=== PATIENT | female | born 1935 | race Caucasian/White ===

== ENCOUNTER 2018-07-17 09:29 | Inpatient (IN) | payer MEDICARE, OTHER ==
[~2018-07-17] VITALS: Ht 152.4 cm; Wt 72.0 kg
[~2018-07-17 09:29] MED LIST: AMIT10TA6 PO; ASPI-231 PO; ATOR10TA PO; CHOL200031 PO; FENO1TAB42 PO; LISI2.5T47 PO; METF-370 PO; METO25TA62 PO; MULT-228 PO; NAPR375T27 PO; OMEG100078 PO; SITA50TA PO; TRAM50TA2 PO
[2018-07-17] MEDS ORDERED: ONDANSETRON HCL 4 MG/2 ML VIAL IV ONE ×2 (10:15→12:45)
[2018-07-17] MEDS ORDERED: ALBUTEROL SULF 2.5 MG/0.5ML(0.5%) NEB SOLN NEB ONE (10:15)
[2018-07-17] MEDS ORDERED: methylPREDNISolone SOD SUCC 125 MG/2 ML VL IV ONE (10:15)
[2018-07-17] MEDS ORDERED: IPRATROPIUM BROM 0.5 MG/2.5ML INH SOL NEB ONE (10:15)
[2018-07-17 10:25] LABS: Basophils # (auto) 0 uL; Basophils % (auto) 0.2 % (0.0-2.0); Eosinophils # (auto) 0 uL; Lymphocytes # (auto) 1.3 uL
[2018-07-17 10:28] LABS: Hematocrit 29.6 % (36.0-46.0); Hemoglobin 10.1 g/dL (12.2-16.2); Lymphocytes % (auto) 6.1 % (10.0-50.0); Mean Corpuscular Volume 91.3 fL (80.0-100.0); Monocytes # (auto) 1.8 uL; Monocytes % (auto) 8.5 % (0.0-12.0); Neutrophils # (auto) 17.9 uL; Neutrophils % (auto) 85.2 % (37.0-80.0); Platelet Count (auto) 638 10^3/uL (140-450); Red Blood Cells 3.24 10^6/uL (4.0-5.20); Red Cell Distribution Width 13.5 % (11.8-14.3)
[2018-07-17 10:39] LABS: INR 1.16 (0.9-1.15); Partial Thromboplastin Time 26.7 sec (23.78-33.04); Prothrombin Time 12.3 sec (9.27-12.13)
[2018-07-17] MEDS ORDERED: cefTRIAXone 1GM/10ml IVPUSH 10 ML IV ONE (10:45)
[2018-07-17 10:58] LABS: Albumin 2.5 g/dL (3.4-5.0); BUN/Creatinine Ratio 29.4; Calcium 7.8 mg/dL (8.5-10.1); Potassium 3.5 mmol/L (3.5-5.1); Total Protein 6.4 g/dL (6.4-8.2)
[2018-07-17] MEDS ORDERED: SODIUM CHLORIDE 0.9% 2,000 ML IV ONE (11:00)
[2018-07-17] MEDS ORDERED: PROMETHAZINE HCL 25 MG/ML 1ML IV ONE (12:00)
[2018-07-17 12:13] LABS: Urine Amorphous Crystal FEW /hpf (None Seen); Urine Bacteria MANY /hpf (None Seen); Urine Blood 1+ /uL (Negative); Urine Specific Gravity 1.011 (1.001-1.035); Urine WBC 67 /hpf (0 - 5); Urine WBC Clumps PRESENT /hpf (None Seen)
[2018-07-17] MEDS ORDERED: PANTOPRAZOLE 40 MG/10 ML VIAL IV ONE ×2 (12:45→14:00)
[2018-07-17] MEDS ORDERED: ONDANSETRON HCL 4 MG/2 ML VIAL ONE (12:45)
[2018-07-17] MEDS ORDERED: DEXTROSE (50%) 50ML SYRG IV PRN (13:45)
[2018-07-17] MEDS ORDERED: FAMOTIDINE (10MG/ML) 2ML VL IV ONE (14:00)
[2018-07-17] MEDS ORDERED: METOPROLOL SUCCINATE XL 50 MG TAB PO ONE (14:00)
[2018-07-17] MEDS ORDERED: PIOGLITAZONE HYDROCHLORIDE 30 MG TAB PO ONE (14:00)
[2018-07-17] MEDS ORDERED: ACETAMINOPHEN 325 MG TAB PO PRN (14:15)
[2018-07-17] MEDS ORDERED: MORPHINE SULF INJ 2 MG/ML SYRINGE 1ML IV PRN (14:15)
[2018-07-17] MEDS ORDERED: TEMAZEPAM 15 MG CAP PO PRN (14:15)
[2018-07-17] MEDS ORDERED: NITROGLYCERIN 0.4 MG SL TAB SL PRN (14:15)
[2018-07-17] MEDS: FISH OIL 1000 MG PO SCH ×2 (14:33→21:58)
[2018-07-17] MEDS: SODIUM CHLORIDE 0.9% 1,000 ML IV SCH ×2 (14:33→22:21)
[2018-07-17] MEDS: ACCU-CHEK COMFORT CURVE STRIP VI SCH ×2 (17:11→22:04)
[2018-07-17] MEDS: InsuLIN REG 1unit/0.01ml Soln (100units/ml) SC SCH ×2 (17:12→22:08)
[2018-07-17] MEDS: ONDANSETRON HCL 4 MG/2 ML VIAL IV PRN (17:24)
[2018-07-17] MEDS: MORPHINE SULF INJ 2 MG/ML SYRINGE 1ML IV PRN (17:24)
[2018-07-17] MEDS: Glucerna Carbsteady SHAKE Vanilla 8oz PO SCH (18:00)
[2018-07-17 19:00] LABS: Basophils # (auto) 0 uL; Basophils % (auto) 0.1 % (0.0-2.0); Eosinophils # (auto) 0 uL; Lymphocytes # (auto) 1.2 uL; Monocytes # (auto) 1.3 uL
[2018-07-17 19:04] LABS: Hemoglobin 9.1 g/dL (12.2-16.2); Lymphocytes % (auto) 6.1 % (10.0-50.0); Mean Corpuscular Hemoglobin 32.5 pg (28.0-32.0); Mean Corpuscular Hgb Conc. 34.9 g/dL (32.0-36.0); Mean Corpuscular Volume 93.2 fL (80.0-100.0); Monocytes % (auto) 6.9 % (0.0-12.0); Neutrophils # (auto) 16.9 uL; Neutrophils % (auto) 86.9 % (37.0-80.0); Platelet Count (auto) 515 10^3/uL (140-450); Red Blood Cells 2.79 10^6/uL (4.0-5.20); Red Cell Distribution Width 14.4 % (11.8-14.3); White Blood Cell 19.5 10^3/uL (4.4-10.8)
[2018-07-17] MEDS: HYDROcodone-ACET 5/325MG TAB PO PRN (19:28)
[2018-07-17] MEDS ORDERED: AMITRIPTYLINE HCL 25 MG TAB ONE (21:58)
[2018-07-17] MEDS: AMITRIPTYLINE HCL 10 MG TAB PO SCH (22:00)
[2018-07-17] MEDS: PANTOPRAZOLE 40 MG/10 ML VIAL IV SCH (22:01)
[2018-07-17] MEDS: ATORVASTATIN 20 MG TAB PO SCH (22:01)
[2018-07-17 22:41] LABS: Hemoglobin 8.2 g/dL (12.2-16.2)
[2018-07-18] MEDS: FISH OIL 1000 MG PO SCH ×3 (06:00→22:00)
[2018-07-18] MEDS: SODIUM CHLORIDE 0.9% 1,000 ML IV SCH ×3 (06:25→23:21)
[2018-07-18] MEDS: ACCU-CHEK COMFORT CURVE STRIP VI SCH ×4 (07:00→22:07)
[2018-07-18] MEDS: InsuLIN REG 1unit/0.01ml Soln (100units/ml) SC SCH ×4 (07:00→22:00)
[2018-07-18 07:42] LABS: Basophils # (auto) 0 uL; Eosinophils # (auto) 0 uL; Eosinophils % (auto) 0.1 % (0.0-7.0); Hemoglobin 8.4 g/dL (12.2-16.2); Red Blood Cells 2.68 10^6/uL (4.0-5.20); Red Cell Distribution Width 14.2 % (11.8-14.3)
[2018-07-18] MEDS: ONDANSETRON HCL 4 MG/2 ML VIAL IV PRN ×2 (07:42→14:30)
[2018-07-18 07:45] LABS: Basophils % (auto) 0.1 % (0.0-2.0); Hematocrit 24.6 % (36.0-46.0); Lymphocytes % (auto) 12.5 % (10.0-50.0); Mean Corpuscular Hemoglobin 31.5 pg (28.0-32.0); Mean Corpuscular Hgb Conc. 34.3 g/dL (32.0-36.0); Mean Corpuscular Volume 91.7 fL (80.0-100.0); Monocytes # (auto) 1.7 uL; Monocytes % (auto) 10.4 % (0.0-12.0); Neutrophils # (auto) 12.3 uL; Neutrophils % (auto) 76.9 % (37.0-80.0); Nucleated Red Blood Cells % 0.1 %; Platelet Count (auto) 510 10^3/uL (140-450); White Blood Cell 16.1 10^3/uL (4.4-10.8)
[2018-07-18 08:01] LABS: Calcium 7.5 mg/dL (8.5-10.1); Potassium 3.6 mmol/L (3.5-5.1)
[2018-07-18 08:08] LABS: BUN/Creatinine Ratio 30.4; Bilirubin, Total 0.6 mg/dL (0.2-1.0); Total Protein 5.5 g/dL (6.4-8.2)
[2018-07-18] MEDS: Glucerna Carbsteady SHAKE Vanilla 8oz PO SCH ×3 (09:33→18:08)
[2018-07-18] MEDS: CHOLECALCIFEROL (VITD3) 1,000 UNIT TAB PO SCH (09:58)
[2018-07-18] MEDS: PIOGLITAZONE HYDROCHLORIDE 30 MG TAB PO SCH (09:59)
[2018-07-18] MEDS: LISINOPRIL 20 MG TAB PO SCH (09:59)
[2018-07-18] MEDS: JANUVIA 50 MG PO SCH (10:00)
[2018-07-18] MEDS ORDERED: FAMOTIDINE (10MG/ML) 2ML VL IV SCH (10:00)
[2018-07-18] MEDS: CRANBERRY TAB PO SCH (10:00)
[2018-07-18] MEDS ORDERED: PANTOPRAZOLE 40 MG/10 ML VIAL IV SCH (10:00)
[2018-07-18] MEDS: FENOFIBRATE 160 MG PO SCH (10:00)
[2018-07-18] MEDS: VICTOZA 18 MG/3 ML SC SCH (10:00)
[2018-07-18] MEDS: PANTOPRAZOLE 40 MG/10 ML VIAL IV SCH (10:07)
[2018-07-18] MEDS: cefTRIAXone 1GM/10ml IVPUSH 10 ML IV SCH (10:07)
[2018-07-18] MEDS: METOPROLOL SUCCINATE XL 50 MG TAB PO SCH (10:09)
[2018-07-18] MEDS: ASCORBIC ACID 500 MG TAB PO SCH (10:09)
[2018-07-18] MEDS: MULTIPLE VITAMIN TAB PO SCH (10:10)
[2018-07-18] MEDS ORDERED: MIDAZOLAM HCL 1MG/1ML-2 ML VIAL ONE (12:14)
[2018-07-18] MEDS ORDERED: fentaNYL CITRATE 100 MCG/2 ML VL ONE (12:14)
[2018-07-18] MEDS ORDERED: PROPOFOL 10 MG/ML 20 ML IV ONE (12:14)
[2018-07-18] MEDS ORDERED: ePHEDrine SULFATE 50 MG/ML AMP IV PRN (12:45)
[2018-07-18] MEDS ORDERED: ONDANSETRON HCL 4 MG/2 ML VIAL IV ONE (12:45)
[2018-07-18] MEDS ORDERED: hydrALAZINE HCL 20 MG/ML VL IV PRN (12:45)
[2018-07-18] MEDS ORDERED: fentaNYL CITRATE 100 MCG/2 ML VL IV ONE (13:00)
[2018-07-18] MEDS: MORPHINE SULF INJ 2 MG/ML SYRINGE 1ML IV PRN ×2 (16:33→22:19)
[2018-07-18 17:52] VITALS: BP 165/64
[2018-07-18 22:00] VITALS: BP 126/66
[2018-07-18] MEDS: ATORVASTATIN 20 MG TAB PO SCH (22:18)
[2018-07-18] MEDS: PANTOPRAZOLE 40 MG TAB PO SCH (22:18)
[2018-07-18] MEDS: AMITRIPTYLINE HCL 10 MG TAB PO SCH (22:18)
[2018-07-19] VITALS (12 sets, daily range): BP systolic 128–162; BP diastolic 53–99
[2018-07-19] MEDS: FISH OIL 1000 MG PO SCH ×3 (06:00→22:19)
[2018-07-19 06:30] LABS: Hematocrit 21.6 % (36.0-46.0)
[2018-07-19 06:36] LABS: Hemoglobin 7.5 g/dL (12.2-16.2); Mean Corpuscular Hgb Conc. 34.6 g/dL (32.0-36.0); Mean Corpuscular Volume 92.4 fL (80.0-100.0); Platelet Count (auto) 474 10^3/uL (140-450); Red Blood Cells 2.34 10^6/uL (4.0-5.20); Red Cell Distribution Width 14.2 % (11.8-14.3); White Blood Cell 12.9 10^3/uL (4.4-10.8)
[2018-07-19 06:45] LABS: Band Neutrophils % (manual) 0; Basophils % (manual) 0 (0.0-2.0); Blast Cells 0; Metamyelocytes % 0; Myelocytes % 0; Promyelocytes % 0; Reactive Lymphocytes 0
[2018-07-19] MEDS: ACCU-CHEK COMFORT CURVE STRIP VI SCH ×4 (06:47→22:24)
[2018-07-19] MEDS: InsuLIN REG 1unit/0.01ml Soln (100units/ml) SC SCH ×4 (06:47→22:00)
[2018-07-19 07:02] LABS: BUN/Creatinine Ratio 29.3; Calcium 7.4 mg/dL (8.5-10.1); Potassium 3.7 mmol/L (3.5-5.1)
[2018-07-19 08:20] LABS: Eosinophils % (manual) 1 (0-7); Lymphocytes % (manual) 17 (10.0-50.0); Monocytes % (manual) 7 (0-12)
[2018-07-19 09:00] LABS: Hematocrit 23.1 % (36.0-46.0)
[2018-07-19 09:09] LABS: Hemoglobin 7.9 g/dL (12.2-16.2)
[2018-07-19] MEDS: JANUVIA 50 MG PO SCH (10:00)
[2018-07-19] MEDS: VICTOZA 18 MG/3 ML SC SCH (10:00)
[2018-07-19] MEDS: Glucerna Carbsteady SHAKE Vanilla 8oz PO SCH ×3 (10:01→18:06)
[2018-07-19] MEDS: FENOFIBRATE 160 MG PO SCH (10:01)
[2018-07-19] MEDS: SODIUM CHLORIDE 0.9% 1,000 ML IV SCH ×2 (10:01→16:57)
[2018-07-19] MEDS: CRANBERRY TAB PO SCH (10:02)
[2018-07-19] MEDS: PIOGLITAZONE HYDROCHLORIDE 30 MG TAB PO SCH (10:03)
[2018-07-19] MEDS: LISINOPRIL 20 MG TAB PO SCH (10:03)
[2018-07-19] MEDS: ASCORBIC ACID 500 MG TAB PO SCH (10:04)
[2018-07-19] MEDS: MULTIPLE VITAMIN TAB PO SCH (10:04)
[2018-07-19] MEDS: METOPROLOL SUCCINATE XL 50 MG TAB PO SCH (10:04)
[2018-07-19] MEDS: CHOLECALCIFEROL (VITD3) 1,000 UNIT TAB PO SCH (10:04)
[2018-07-19] MEDS: PANTOPRAZOLE 40 MG TAB PO SCH ×2 (10:04→22:22)
[2018-07-19] MEDS: ONDANSETRON HCL 4 MG/2 ML VIAL IV PRN (11:03)
[2018-07-19] MEDS: cefTRIAXone 1GM/10ml IVPUSH 10 ML IV SCH (16:57)
[2018-07-19] MEDS: ATORVASTATIN 20 MG TAB PO SCH (22:19)
[2018-07-19] MEDS: AMITRIPTYLINE HCL 10 MG TAB PO SCH (22:24)
[2018-07-20] MEDS: SODIUM CHLORIDE 0.9% 1,000 ML IV SCH (00:21)
[2018-07-20 05:00] VITALS: BP 143/69
[2018-07-20] MEDS: FISH OIL 1000 MG PO SCH ×4 (06:00→22:00)
[2018-07-20] MEDS: InsuLIN REG 1unit/0.01ml Soln (100units/ml) SC SCH ×4 (06:32→22:00)
[2018-07-20] MEDS: ACCU-CHEK COMFORT CURVE STRIP VI SCH ×4 (06:33→21:55)
[2018-07-20 07:22] LABS: Hematocrit 31.9 % (36.0-46.0); Hemoglobin 11.2 g/dL (12.2-16.2); Mean Corpuscular Hemoglobin 30.4 pg (28.0-32.0); Mean Corpuscular Volume 86.8 fL (80.0-100.0); Platelet Count (auto) 436 10^3/uL (140-450); Red Blood Cells 3.67 10^6/uL (4.0-5.20); Red Cell Distribution Width 15.8 % (11.8-14.3); White Blood Cell 10.5 10^3/uL (4.4-10.8)
[2018-07-20 07:29] LABS: Basophils % (manual) 0 (0.0-2.0); Blast Cells 0; Myelocytes % 0; Promyelocytes % 0; Reactive Lymphocytes 0
[2018-07-20 07:33] LABS: Calcium 7.9 mg/dL (8.5-10.1); Potassium 3.5 mmol/L (3.5-5.1)
[2018-07-20 08:15] LABS: Band Neutrophils % (manual) 3; Eosinophils % (manual) 2 (0-7); Lymphocytes % (manual) 25 (10.0-50.0); Monocytes % (manual) 3 (0-12)
[2018-07-20 08:16] LABS: Metamyelocytes % 2
[2018-07-20 09:00] VITALS: BP 153/68
[2018-07-20] MEDS: Glucerna Carbsteady SHAKE Vanilla 8oz PO SCH ×3 (09:31→17:18)
[2018-07-20] MEDS: cefTRIAXone 1GM/10ml IVPUSH 10 ML IV SCH (09:31)
[2018-07-20] MEDS: PANTOPRAZOLE 40 MG TAB PO SCH ×2 (09:32→21:54)
[2018-07-20] MEDS: LISINOPRIL 20 MG TAB PO SCH (09:32)
[2018-07-20] MEDS: ASCORBIC ACID 500 MG TAB PO SCH (09:32)
[2018-07-20] MEDS: SODIUM BICARBONATE 650 MG TAB PO SCH ×2 (09:32→21:54)
[2018-07-20] MEDS: CHOLECALCIFEROL (VITD3) 1,000 UNIT TAB PO SCH (09:33)
[2018-07-20] MEDS: METOPROLOL SUCCINATE XL 50 MG TAB PO SCH (09:34)
[2018-07-20] MEDS: MULTIPLE VITAMIN TAB PO SCH (09:34)
[2018-07-20] MEDS: PIOGLITAZONE HYDROCHLORIDE 30 MG TAB PO SCH (09:34)
[2018-07-20] MEDS: FENOFIBRATE 160 MG PO SCH (09:35)
[2018-07-20] MEDS: VICTOZA 18 MG/3 ML SC SCH (09:35)
[2018-07-20] MEDS: CRANBERRY TAB PO SCH (09:35)
[2018-07-20] MEDS: JANUVIA 50 MG PO SCH (09:43)
[2018-07-20 13:28] VITALS: BP 148/72
[2018-07-20 17:13] VITALS: BP 154/80
[2018-07-20 20:00] VITALS: BP 159/82
[2018-07-20 21:51] VITALS: BP 159/82
[2018-07-20] MEDS: AMITRIPTYLINE HCL 10 MG TAB PO SCH (21:54)
[2018-07-20] MEDS: ATORVASTATIN 20 MG TAB PO SCH (21:54)
[2018-07-21 04:38] VITALS: BP 152/68
[2018-07-21] MEDS: FISH OIL 1000 MG PO SCH (06:00)
[2018-07-21] MEDS: InsuLIN REG 1unit/0.01ml Soln (100units/ml) SC SCH ×2 (06:31→12:00)
[2018-07-21] MEDS: ACCU-CHEK COMFORT CURVE STRIP VI SCH ×2 (06:32→11:30)
[2018-07-21 07:48] LABS: Hemoglobin 11.3 g/dL (12.2-16.2)
[2018-07-21 07:50] LABS: Hematocrit 32.7 % (36.0-46.0); Mean Corpuscular Hemoglobin 30.2 pg (28.0-32.0); Mean Corpuscular Hgb Conc. 34.5 g/dL (32.0-36.0); Mean Corpuscular Volume 87.6 fL (80.0-100.0); Platelet Count (auto) 481 10^3/uL (140-450); Red Blood Cells 3.73 10^6/uL (4.0-5.20); Red Cell Distribution Width 15.7 % (11.8-14.3); White Blood Cell 9.6 10^3/uL (4.4-10.8)
[2018-07-21 07:54] LABS: Basophils % (manual) 0 (0.0-2.0); Blast Cells 0; Metamyelocytes % 0; Myelocytes % 0; Promyelocytes % 0; Reactive Lymphocytes 0
[2018-07-21 08:00] VITALS: BP 153/68
[2018-07-21] MEDS: Glucerna Carbsteady SHAKE Vanilla 8oz PO SCH ×2 (08:00→12:00)
[2018-07-21 08:03] LABS: Calcium 7.9 mg/dL (8.5-10.1); Potassium 3.8 mmol/L (3.5-5.1)
[2018-07-21 08:51] LABS: Band Neutrophils % (manual) 7; Eosinophils % (manual) 1 (0-7); Lymphocytes % (manual) 16 (10.0-50.0); Monocytes % (manual) 8 (0-12)
[2018-07-21 09:00] VITALS: BP 149/70
[2018-07-21] MEDS: VICTOZA 18 MG/3 ML SC SCH (10:00)
[2018-07-21] MEDS: LISINOPRIL 20 MG TAB PO SCH (10:00)
[2018-07-21] MEDS: JANUVIA 50 MG PO SCH (10:00)
[2018-07-21] MEDS: METOPROLOL SUCCINATE XL 50 MG TAB PO SCH (10:01)
[2018-07-21] MEDS: PIOGLITAZONE HYDROCHLORIDE 30 MG TAB PO SCH (10:02)
[2018-07-21] MEDS: MULTIPLE VITAMIN TAB PO SCH (10:02)
[2018-07-21] MEDS: CHOLECALCIFEROL (VITD3) 1,000 UNIT TAB PO SCH (10:02)
[2018-07-21] MEDS: ASCORBIC ACID 500 MG TAB PO SCH (10:02)
[2018-07-21] MEDS: SODIUM BICARBONATE 650 MG TAB PO SCH (10:02)
[2018-07-21] MEDS: PANTOPRAZOLE 40 MG TAB PO SCH (10:02)
[2018-07-21] MEDS: HYDROcodone-ACET 5/325MG TAB PO PRN (10:03)
[2018-07-21] MEDS: cefTRIAXone 1GM/10ml IVPUSH 10 ML IV SCH (10:03)
[2018-07-21] MEDS: FENOFIBRATE 160 MG PO SCH (10:09)
[2018-07-21] MEDS: CRANBERRY TAB PO SCH (10:10)
== END 2018-07-21 13:20 | disposition home or self-care (01) | DRG 871 ==
LOC: EDBD 09:29 → ER 09:29 → TELE 09:30 → TELE-WESTW 07-18 18:37
PROVIDERS: ADMIT Internal Medicine; ATTEND Internal Medicine
PROC: 0DJ08ZZ Inspection of Upper Intestinal Tract, Via Natural or Artificial Opening Endoscopic (ICD-10-PCS; principal; 2018-07-17)
PROC: 30233N1 Transfusion of Nonautologous Red Blood Cells into Peripheral Vein, Percutaneous Approach (ICD-10-PCS; 2018-07-17)
DX: A41.9 Sepsis, unspecified organism (principal); E43 Unspecified severe protein-calorie malnutrition; K25.4 Chronic or unspecified gastric ulcer with hemorrhage; N17.0 Acute kidney failure with tubular necrosis; K29.81 Duodenitis with bleeding; K29.71 Gastritis, unspecified, with bleeding; J18.9 Pneumonia, unspecified organism; D68.9 Coagulation defect, unspecified; E87.1 Hypo-osmolality and hyponatremia; J44.1 Chronic obstructive pulmonary disease with (acute) exacerbation; I13.0 Hypertensive heart and chronic kidney disease with heart failure and stage 1 through stage 4 chronic kidney disease, or unspecified chronic kidney disease; I50.42 Chronic combined systolic (congestive) and diastolic (congestive) heart failure; J44.0 Chronic obstructive pulmonary disease with (acute) lower respiratory infection; N39.0 Urinary tract infection, site not specified; E86.0 Dehydration; D63.8 Anemia in other chronic diseases classified elsewhere; K26.9 Duodenal ulcer, unspecified as acute or chronic, without hemorrhage or perforation; K20.9 Esophagitis, unspecified; E78.5 Hyperlipidemia, unspecified; E11.22 Type 2 diabetes mellitus with diabetic chronic kidney disease; D47.3 Essential (hemorrhagic) thrombocythemia; E11.21 Type 2 diabetes mellitus with diabetic nephropathy; E83.51 Hypocalcemia; M19.90 Unspecified osteoarthritis, unspecified site; N18.3 Chronic kidney disease, stage 3 (moderate); Z83.3 Family history of diabetes mellitus; Z90.49 Acquired absence of other specified parts of digestive tract; Z89.432 Acquired absence of left foot; Z68.31 Body mass index [BMI] 31.0-31.9, adult
CPT/HCPCS: 36415; 43235; 51702; 70450; 71045; 73502; 74176; 78582; 80048; 80053; 81001; 82962; 83036; 83605; 83880; 84443; 84484; 85007; 85014; 85018; 85025; 85027; 85610; 85730; 86677; 86850; 86900; 86901; 86920; 87040; 87086; 87088; 87186; 93005; 93306; 94640; 96361; 96374; 96375; 97110; 97116; 97530; C9113; J0696; J1815; J2250; J2405; J2704

== ENCOUNTER → 2018-11-08 | Outpatient (CLI) | payer MEDICARE, OTHER ==
[~2018-11-08] MED LIST changes: -AMIT10TA6 PO; -ASPI-231 PO; +CALC667C5 PO; +FUR20T PO; -LISI2.5T47 PO; -NAPR375T27 PO; +PANT40T PO
[2018-11-08 10:02] LABS: Eosinophils # (auto) 0.3 uL; Hemoglobin 10.1 g/dL (12.2-16.2); Lymphocytes # (auto) 1.6 uL; Monocytes # (auto) 0.6 uL
[2018-11-08 10:04] LABS: Basophils # (auto) 0.2 uL; Basophils % (auto) 2.3 % (0.0-2.0); Eosinophils % (auto) 4.6 % (0.0-7.0); Hematocrit 30.4 % (36.0-46.0); Mean Corpuscular Hemoglobin 30.6 pg (28.0-32.0); Mean Corpuscular Hgb Conc. 33.3 g/dL (32.0-36.0); Mean Corpuscular Volume 92.1 fL (80.0-100.0); Monocytes % (auto) 8.2 % (0.0-12.0); Neutrophils # (auto) 4.1 uL; Neutrophils % (auto) 60.9 % (37.0-80.0); Platelet Count (auto) 579 10^3/uL (140-450); Red Cell Distribution Width 16.8 % (11.8-14.3); White Blood Cell 6.7 10^3/uL (4.4-10.8)
[2018-11-08 11:15] LABS: BUN/Creatinine Ratio 20.8; Calcium 8.5 mg/dL (8.5-10.1); Potassium 5.4 mmol/L (3.5-5.1)
== END | disposition home or self-care (01) ==
LOC: LAB 09:41
PROVIDERS: ATTEND Internal Medicine
DX: I12.9 Hypertensive chronic kidney disease with stage 1 through stage 4 chronic kidney disease, or unspecified chronic kidney disease (principal); E11.22 Type 2 diabetes mellitus with diabetic chronic kidney disease; D63.1 Anemia in chronic kidney disease; N18.3 Chronic kidney disease, stage 3 (moderate); N17.9 Acute kidney failure, unspecified
CPT/HCPCS: 36415; 80048; 85025

== ENCOUNTER → 2018-12-19 | Outpatient (CLI) | payer MEDICARE, OTHER ==
[~2018-12-19] VITALS: Ht 162.6 cm; Wt 68.0 kg
[~2018-12-19] MED LIST changes: +ADENOSINE 57 MG in GIVE UN-DILUTED 0 ML IV ONE; +ADENOSINE 90 MG/30 ML INJ IV ONE
[2018-12-19 12:32] LABS: Basophils # (auto) 0.1 uL; Basophils % (auto) 1.3 % (0.0-2.0); Eosinophils # (auto) 0.3 uL; Eosinophils % (auto) 3.6 % (0.0-7.0); Hematocrit 29.8 % (36.0-46.0); Hemoglobin 10.4 g/dL (12.2-16.2); Lymphocytes # (auto) 1.7 uL; Lymphocytes % (auto) 23.7 % (10.0-50.0); Mean Corpuscular Hemoglobin 32.4 pg (28.0-32.0); Mean Corpuscular Hgb Conc. 34.8 g/dL (32.0-36.0); Mean Corpuscular Volume 93.2 fL (80.0-100.0); Monocytes # (auto) 0.5 uL; Monocytes % (auto) 7.3 % (0.0-12.0); Neutrophils # (auto) 4.7 uL; Neutrophils % (auto) 64.1 % (37.0-80.0); Nucleated Red Blood Cells % 0.3 %; Platelet Count (auto) 418 10^3/uL (140-450); Red Blood Cells 3.19 10^6/uL (4.0-5.20); Red Cell Distribution Width 16.2 % (11.8-14.3); White Blood Cell 7.3 10^3/uL (4.4-10.8)
[2018-12-19 12:42] LABS: Albumin 3.4 g/dL (3.4-5.0); Calcium 8.8 mg/dL (8.5-10.1); Potassium 4.1 mmol/L (3.5-5.1)
[2018-12-19 12:48] LABS: BUN/Creatinine Ratio 21.8; Bilirubin, Total 0.3 mg/dL (0.2-1.0); Total Protein 7.4 g/dL (6.4-8.2)
[2018-12-19 13:09] LABS: Free T4 (Free Thyroxine) 0.95 ng/dL (0.89-1.76)
== END | disposition home or self-care (01) ==
LOC: Rad HDHVI 08:24
PROVIDERS: ATTEND Internal Medicine
DX: I12.9 Hypertensive chronic kidney disease with stage 1 through stage 4 chronic kidney disease, or unspecified chronic kidney disease (principal); N18.3 Chronic kidney disease, stage 3 (moderate); E78.5 Hyperlipidemia, unspecified; J44.9 Chronic obstructive pulmonary disease, unspecified; I73.9 Peripheral vascular disease, unspecified; F17.209 Nicotine dependence, unspecified, with unspecified nicotine-induced disorders; I25.10 Atherosclerotic heart disease of native coronary artery without angina pectoris; E03.9 Hypothyroidism, unspecified; E11.9 Type 2 diabetes mellitus without complications; E55.9 Vitamin D deficiency, unspecified; D51.9 Vitamin B12 deficiency anemia, unspecified; N39.0 Urinary tract infection, site not specified
CPT/HCPCS: 36415; 78452; 80053; 80061; 82306; 82607; 83036; 84439; 84443; 85025; 93005; 96374; 96375; A9500; J0153

== ENCOUNTER → 2018-12-26 | Outpatient (CLI) | payer MEDICARE, OTHER ==
[~2018-12-26] MED LIST changes: -ADENOSINE 57 MG in GIVE UN-DILUTED 0 ML IV ONE; -ADENOSINE 90 MG/30 ML INJ IV ONE
== END | disposition home or self-care (01) ==
LOC: Rad HDHVI 07:59
PROVIDERS: ATTEND Internal Medicine
DX: I34.0 Nonrheumatic mitral (valve) insufficiency (principal); I11.0 Hypertensive heart disease with heart failure; I50.9 Heart failure, unspecified; I25.10 Atherosclerotic heart disease of native coronary artery without angina pectoris; I73.9 Peripheral vascular disease, unspecified
CPT/HCPCS: 93306; 93880; 93925

== ENCOUNTER 2019-03-07 14:11 | Inpatient (IN) | payer MEDICARE, OTHER ==
[~2019-03-07] VITALS: Ht 162.6 cm; Wt 65.4 kg
--- NOTE | 2019-03-07 14:30 | NUR ---
Direct Admit Note NYLA LANDON admitted to Telemetry unit as a direct admit per Dr. Em's order. Patient oriented to Silvio Chaudhry, primary RN, unit, room, bed, and unit policies regarding patient care and visiting hours. Patient now on continuous telemetry monitoring, tele box #39 and telemetry reading on arrival to unit is [id number]. Patient placed on bedside oxygen, weighed by bedscale and encouraged to call if they need something. All questions and concerns addressed, patient verbalized understanding. Pavel Amado PAPER FINISHER notified of patients arrival and admit orders received.
[2019-03-07 15:00] VITALS: BP 152/71
[2019-03-07] MEDS ORDERED: DEXTROSE (50%) 50ML SYRG IV PRN (15:00)
[2019-03-07] MEDS ORDERED: MAGNESIUM CITRATE SOLUTION 300 ML BTL PO ONE ×2 (15:00→16:15)
[2019-03-07] MEDS ORDERED: NICOTINE 21MG/24 HR TOPICAL PATCH TD ONE (15:00)
[2019-03-07] MEDS ORDERED: BISACODYL 5 MG EC TAB PO ONE (15:00)
[2019-03-07] MEDS ORDERED: LACTULOSE 20Gm/30ML SOLN PO ONE (15:00)
[2019-03-07] MEDS ORDERED: ACETAMINOPHEN 500 MG TAB PO PRN (15:00)
[2019-03-07] MEDS ORDERED: MORPHINE SULF INJ 2 MG/ML SYRINGE 1ML IV PRN (15:00)
[2019-03-07] MEDS ORDERED: NITROGLYCERIN 0.4 MG SL TAB SL PRN (15:00)
--- NOTE | 2019-03-07 16:45 | NUR ---
IV insertion IV access obtained, via clean sterile technique by inserting 18 gauge catheter at right forearm after one attempt. IV secured properly. No trauma to site. Patient tolerated well.
[2019-03-07 16:52] VITALS: BP 152/71
[2019-03-07] MEDS: InsuLIN REG 1unit/0.01ml Soln (100units/ml) SC SCH ×2 (17:00→21:35)
[2019-03-07 17:31] LABS: INR 1.04 (0.9-1.15); Prothrombin Time 11.1 sec (9.27-12.13)
[2019-03-07] MEDS: SODIUM CHLORIDE 0.9% 1,000 ML IV SCH (18:29)
[2019-03-07] MEDS: ACCU-CHEK COMFORT CURVE STRIP VI SCH ×2 (18:29→21:36)
--- NOTE | 2019-03-07 19:00 | NUR ---
Patient had 4x of loose watery stools of clear yellow appearance of moderate to large amount.
--- NOTE | 2019-03-07 20:00 | NUR ---
RECEIVED PT IN BED, A/O X4, IN NO ACUTE DISTRESS, DENIES PAIN. PT A LITTLE HARD OF HEARING. POC REVIEWED WITH PT, VERBALIZED UNDERSTANDING, AWARE SHE WILL BE NPO P MN FOR EGD/COLONOSCOPY IN AM, ALSO AWARE OF PENDING BLOOD TRANSFUSION. CALL LIGHT WITHIN REACH, ENCOURAGED TO CALL IF HELP IS NEEDED. SIDE RAILS UP X2, BED IN LOWEST LOCKED POSITION, NON SKID SOCKS ON, BED ALARM ON. CONTINUE CARE.
[2019-03-07] MEDS: METOPROLOL TARTRATE 25 MG TAB PO SCH (21:56)
[2019-03-07] MEDS: PANTOPRAZOLE 40 MG/10 ML VIAL IV SCH (21:56)
[2019-03-07 22:00] VITALS: BP 147/68
--- NOTE | 2019-03-07 22:00 | NUR ---
LINKING MACHINE OPERATOR Called/paged Christophe FREEMAN LINKING MACHINE OPERATOR called re:fall incident. Waiting for call back. Continue care.
[2019-03-07] MEDS: BUDESONIDE (INHALATION) 0.5 MG/2 ML NEB NEB SCH (22:11)
[2019-03-07] MEDS: HYDROcodone-ACET 5/325MG TAB PO PRN (22:20)
--- NOTE | 2019-03-07 22:20 | NUR ---
ISABELA ARREAGA NOTIFIED OF FALL INCIDENT. CONTINUE CARE.
[2019-03-07 22:32] VITALS: BP 147/68
--- NOTE | 2019-03-07 22:35 | NUR ---
FALL INCIDENT PT WAS BEING ASSISTED TO BS, PT LOST BALANCE AND FELL ON THE FLOOR. RN ASSISTED PT TO FLOOR. PT'S BACK HIT IV POLE. PT ASSISTED TO [facility] WITH CHET BARRIOS. VS TAKEN- T 98.4, P 91, R 22, 02 SAT ON RA 98%, BP 121/52. PT OBTAINED SCRATCH ON BACK AND BRUISE ON GLADIS. NANOTECHNICIAN DONNA NOTIFIED. WILL INFORM HOUSE SUP AND SIZE MARKER. CONTINUE CARE. Addendum: 03/08/19 at 0020 by Candace Lr RN WRONG TIME. ACTUAL TIME OF INCIDENT IS 2134.
--- NOTE | 2019-03-07 22:37 | NUR ---
RECEIVED CALL FROM NET DEVELOPER ARCHITECT, UPDATED ON FALL INCIDENT. NO NEW ORDERS. CONTINUE CARE.
[2019-03-07 22:45] VITALS: BP 148/64
--- NOTE | 2019-03-07 22:50 | NUR ---
ASSISTED PT BACK TO BED, ALL LINENS CHANGED. NON SKID SOCKS ON/BED ALARM ON. CALL LIGHT WITHIN REACH, ENCOURAGED TO CALL WHEN GETTING UP. CONTINUE CARE. Addendum: 03/08/19 at 0021 by Candace Lr RN WRONG TIME. ACTUAL TIME-[id number].
[2019-03-07 23:05] VITALS: BP 142/93
--- NOTE | 2019-03-08 00:23 | NUR ---
BM PT'S OUTPUT IS CLEAR, YELLOW LIQUID. BEEN UP TO BSC X4 WITH LARGE AMOUNTS OF OUTPUT. CONTINUE CARE.
--- NOTE | 2019-03-08 01:30 | NUR ---
BLOOD TRANSFUSION DONE NO REACTION NOTED. TOLERATED WELL. WILL CHECK 1 HR POST TRANSFUSION VS. CONTINUE CARE.
[2019-03-08 02:30] VITALS: BP 115/58
[2019-03-08 05:50] VITALS: BP 143/66
--- NOTE | 2019-03-08 05:51 | NUR ---
TAP WATER ENEMA HELD AT THIS TIME DUE TO MULTIPLE BM WITH CLEAR, YELLOW LIQUID. CONTINUE CARE.
[2019-03-08] MEDS: ACCU-CHEK COMFORT CURVE STRIP VI SCH ×4 (06:09→21:46)
[2019-03-08] MEDS: LEVOTHYROXINE SODIUM 50 MCG TAB PO SCH (06:09)
[2019-03-08] MEDS: InsuLIN REG 1unit/0.01ml Soln (100units/ml) SC SCH ×4 (06:09→21:46)
[2019-03-08] MEDS: BUDESONIDE (INHALATION) 0.5 MG/2 ML NEB NEB SCH ×2 (06:49→22:33)
[2019-03-08 07:24] LABS: Basophils # (auto) 0.1 uL; Basophils % (auto) 0.8 % (0.0-2.0); Eosinophils # (auto) 0.1 uL; Eosinophils % (auto) 1.6 % (0.0-7.0); Hemoglobin 8.7 g/dL (12.2-16.2); Lymphocytes # (auto) 1.6 uL; Lymphocytes % (auto) 20.3 % (10.0-50.0); Mean Corpuscular Hemoglobin 33.7 pg (28.0-32.0); Mean Corpuscular Hgb Conc. 33.6 g/dL (32.0-36.0); Mean Corpuscular Volume 100.4 fL (80.0-100.0); Monocytes # (auto) 0.7 uL; Monocytes % (auto) 9.8 % (0.0-12.0); Neutrophils # (auto) 5.1 uL; Neutrophils % (auto) 67.5 % (37.0-80.0); Platelet Count (auto) 411 10^3/uL (140-450); Red Blood Cells 2.59 10^6/uL (4.0-5.20); Red Cell Distribution Width 16.7 % (11.8-14.3); White Blood Cell 7.6 10^3/uL (4.4-10.8)
[2019-03-08 07:30] VITALS: BP 141/62
[2019-03-08 07:41] LABS: Calcium 8.2 mg/dL (8.5-10.1); Magnesium 2.4 mg/dL (1.6-2.6); Potassium 3.8 mmol/L (3.5-5.1)
[2019-03-08 07:45] LABS: BUN/Creatinine Ratio 16.6; INR 1.07 (0.9-1.15); Partial Thromboplastin Time 29.6 sec (23.78-33.04); Prothrombin Time 11.4 sec (9.27-12.13)
[2019-03-08] MEDS: SODIUM CHLORIDE 0.9% 1,000 ML IV SCH (08:03)
[2019-03-08] MEDS ORDERED: LIDOCAINE VISCOUS 2% 15ML UD ONE (08:16)
[2019-03-08] MEDS ORDERED: diphenhdrAMINE HCL 50 MG/1 ML VL ONE (08:16)
[2019-03-08] MEDS ORDERED: SODIUM CHLORIDE LOCK 10 ML ONE (08:16)
--- NOTE | 2019-03-08 08:30 | NUR ---
STOOLS MILDLY CLOUDY YELLOW IN APPEARANCE. TAP WATER ENEMA DONE, CLEAR YELLOW OUTPUT AT THIS TIME.
[2019-03-08] MEDS: PANTOPRAZOLE 40 MG/10 ML VIAL IV SCH (08:57)
[2019-03-08] MEDS: METOPROLOL TARTRATE 25 MG TAB PO SCH ×2 (08:58→21:33)
[2019-03-08] MEDS ORDERED: FUROSEMIDE 40 MG/4 ML VIAL IV ONE (11:00)
--- NOTE | 2019-03-08 11:05 | NUR ---
Patient brought to pre-op via bed for EGD/Colonoscopy With Dr. Em. Gave reports to Dariusz CANSECO.
[2019-03-08] MEDS: MIDAZOLAM HCL 5 MG/ML-1ML VIAL ONE ×3 (11:27→11:39)
[2019-03-08] MEDS: fentaNYL CITRATE 100 MCG/2 ML VL ONE ×3 (11:27→11:39)
[2019-03-08 12:08] VITALS: BP 123/54
--- NOTE | 2019-03-08 12:15 | NUR ---
Received reports from INTERNET NETWORK SPECIALIST, patient is S/P EGD/Colonoscopy performed by Dr. Em under moderate sedation. Patient is still drowsy, not in respiratory distress. Bed alarm on and side rails up x2. Will continue to monitor.
--- NOTE | 2019-03-08 12:50 | NUR ---
Patient fully awake, lunch tray served. Tolerated well.
[2019-03-08 16:30] VITALS: BP 151/64
--- NOTE | 2019-03-08 16:38 | NUR ---
Pt is an alert and oriented female that resides alone but has family in the area. Pt functions at home with assistance from her son, Kemar, and her granddaughter. Pt inquiring about having her daughter as her IHSS worker. Informed pt that she will need to apply for [employer] and then for the IHSS program. Provided information on program and contact info as well. Pt requesting possible home health as she has had that in the past. Provided pt with a list of home health agencies and will followup with her closer to discharge. Pt's son to provide transportation home upon discharge. Addendum: 03/08/19 at 1646 by NIKKI FITZGERALD Amended: Links added.
[2019-03-08 17:55] LABS: Urine Bacteria MANY /hpf (None Seen); Urine Blood 1+ /uL (Negative); Urine Specific Gravity 1.009 (1.001-1.035); Urine WBC 54 /hpf (0 - 5)
--- NOTE | 2019-03-08 19:30 | NUR ---
Opening Shift Note Assumed care of patient, awake and alert. No S/S of distress/SOB or pain. Insructed on POC and to callfor assist PRN, will continue to monitor for changes Q1hr and PRN. Fall and safety precautions in place. Call light within reach.
[2019-03-08] MEDS: HYDROcodone-ACET 5/325MG TAB PO PRN (21:32)
[2019-03-08 21:35] VITALS: BP 149/71
[2019-03-09 04:54] VITALS: BP 124/74
[2019-03-09 04:59] LABS: Basophils # (auto) 0 uL; Eosinophils # (auto) 0.2 uL; Hemoglobin 8.4 g/dL (12.2-16.2); Lymphocytes # (auto) 1.4 uL; Monocytes # (auto) 0.7 uL; Neutrophils # (auto) 6.1 uL
[2019-03-09 05:00] LABS: Basophils % (auto) 0.5 % (0.0-2.0); Eosinophils % (auto) 1.9 % (0.0-7.0); Hematocrit 25.1 % (36.0-46.0); Lymphocytes % (auto) 16.4 % (10.0-50.0); Mean Corpuscular Hemoglobin 32.9 pg (28.0-32.0); Mean Corpuscular Hgb Conc. 33.6 g/dL (32.0-36.0); Mean Corpuscular Volume 97.8 fL (80.0-100.0); Monocytes % (auto) 8.6 % (0.0-12.0); Neutrophils % (auto) 72.6 % (37.0-80.0); Platelet Count (auto) 420 10^3/uL (140-450); Red Blood Cells 2.57 10^6/uL (4.0-5.20); Red Cell Distribution Width 16.5 % (11.8-14.3); White Blood Cell 8.4 10^3/uL (4.4-10.8)
[2019-03-09 05:07] LABS: BUN/Creatinine Ratio 16.9; Calcium 7.7 mg/dL (8.5-10.1)
[2019-03-09] MEDS: LEVOTHYROXINE SODIUM 50 MCG TAB PO SCH (05:24)
[2019-03-09] MEDS: ACCU-CHEK COMFORT CURVE STRIP VI SCH ×4 (05:35→22:26)
[2019-03-09] MEDS: InsuLIN REG 1unit/0.01ml Soln (100units/ml) SC SCH ×4 (05:35→22:25)
[2019-03-09] MEDS: HYDROcodone-ACET 5/325MG TAB PO PRN ×3 (05:36→22:34)
--- NOTE | 2019-03-09 07:30 | NUR ---
OPENING SHIFT NOTE: Received report from NOC RN, Amaya. Assumed care of patient. Patient resting in bed, pain well controlled after receiving [place] earlier. Bed in lowest position, rails x2 up and call light within reach. Updated on plan of care. Will continue to monitor.
[2019-03-09 08:00] VITALS: BP 124/57
[2019-03-09] MEDS: BUDESONIDE (INHALATION) 0.5 MG/2 ML NEB NEB SCH ×2 (09:17→22:43)
--- NOTE | 2019-03-09 09:30 | NUR ---
MD: Dr Gonzalez at bedside to see patient.
[2019-03-09] MEDS ORDERED: FUROSEMIDE 20 MG/2 ML VIAL IV ONE (09:45)
[2019-03-09] MEDS ORDERED: cefTRIAXone 1GM/50ML D5W 50 ML IV ONE (09:45)
[2019-03-09] MEDS: METOPROLOL TARTRATE 25 MG TAB PO SCH ×2 (10:37→22:25)
[2019-03-09 10:50] LABS: % Iron Saturation 14.8 % (15-50)
--- NOTE | 2019-03-09 11:07 | NUR ---
IV ACCESS: Rt FA IV infiltrated. Discontinued IV with catheter intact, pressure dressing applied. New IV started after one attempt. #22 RT FA.
[2019-03-09 12:00] VITALS: BP 156/80
[2019-03-09 17:00] VITALS: BP 140/64
[2019-03-09] MEDS: FERROUS SULFATE 325 MG TAB PO SCH (18:35)
--- NOTE | 2019-03-09 19:25 | NUR ---
CLOSING SHIFT NOTE: Report given to NOC Kaykay CANSECO. Endorsed care of patient.
--- NOTE | 2019-03-09 19:30 | NUR ---
Opening Shift Note Assumed care of patient, awake and alert. Very [place]. incontinent of urine at times. Will try the bedpan when able. Verbalized " I have to pee every hour or two."No S/S of distress/SOB or pain. Instructed on POC and to call for assist PRN, will continue to monitor for changes Q1hr and PRN.
[2019-03-09 20:00] VITALS: BP 156/80
[2019-03-09 22:00] VITALS: BP 149/90
[2019-03-09] MEDS: LORazepam 0.5 MG TAB PO PRN (22:31)
[2019-03-10 04:54] VITALS: BP 140/68
--- NOTE | 2019-03-10 06:00 | NUR ---
Assisted patient on bedpan often through out night. q1-2 hours. Noticed she has a slight rash under folds of breast. Will notify MD and oncoming nurse. May need nystatin powder. Educated patient on the importance of keeping that area clean and dry as possible. Bed alarm placed as I witnessed patient with her legs out of the bed and trying to get up. Call light within reach
[2019-03-10 06:05] LABS: Basophils # (auto) 0 uL; Eosinophils # (auto) 0.1 uL; Eosinophils % (auto) 1.8 % (0.0-7.0); Hemoglobin 8.1 g/dL (12.2-16.2); Lymphocytes # (auto) 1.1 uL; Mean Corpuscular Hemoglobin 33.3 pg (28.0-32.0); Monocytes # (auto) 0.7 uL
[2019-03-10 06:09] LABS: Basophils % (auto) 0.6 % (0.0-2.0); Hematocrit 23.9 % (36.0-46.0); Lymphocytes % (auto) 15.2 % (10.0-50.0); Mean Corpuscular Hgb Conc. 33.9 g/dL (32.0-36.0); Mean Corpuscular Volume 98.3 fL (80.0-100.0); Monocytes % (auto) 9.7 % (0.0-12.0); Neutrophils # (auto) 5.3 uL; Neutrophils % (auto) 72.7 % (37.0-80.0); Platelet Count (auto) 369 10^3/uL (140-450); Red Blood Cells 2.43 10^6/uL (4.0-5.20); White Blood Cell 7.3 10^3/uL (4.4-10.8)
[2019-03-10 06:18] LABS: Calcium 7.6 mg/dL (8.5-10.1); Potassium 3.9 mmol/L (3.5-5.1)
[2019-03-10 06:22] LABS: BUN/Creatinine Ratio 21.7
[2019-03-10] MEDS: BUDESONIDE (INHALATION) 0.5 MG/2 ML NEB NEB SCH ×2 (06:27→22:47)
[2019-03-10] MEDS: LEVOTHYROXINE SODIUM 50 MCG TAB PO SCH (06:35)
[2019-03-10] MEDS: InsuLIN REG 1unit/0.01ml Soln (100units/ml) SC SCH ×4 (06:36→22:00)
[2019-03-10] MEDS: ACCU-CHEK COMFORT CURVE STRIP VI SCH ×4 (06:36→22:34)
--- NOTE | 2019-03-10 07:30 | NUR ---
OPENING SHIFT NOTE: Received report from NOC RNKaykay. Assumed care of patient. Patient resting in bed, denies pain. Bed in lowest position, rails x2 up and call light within reach. Updated on plan of care. Will continue to monitor.
[2019-03-10 08:00] VITALS: BP 133/62
[2019-03-10] MEDS: FERROUS SULFATE 325 MG TAB PO SCH ×2 (08:38→17:49)
[2019-03-10] MEDS: HYDROcodone-ACET 5/325MG TAB PO PRN ×2 (08:38→17:49)
[2019-03-10] MEDS: cefTRIAXone 1GM/50ML D5W 50 ML IV SCH (08:38)
[2019-03-10] MEDS: FUROSEMIDE 40 MG TAB PO SCH (10:51)
[2019-03-10] MEDS: METOPROLOL TARTRATE 25 MG TAB PO SCH ×2 (10:52→21:56)
--- NOTE | 2019-03-10 11:30 | NUR ---
PT DECLINED P.T. TODAY.
[2019-03-10 12:00] VITALS: BP 150/82
[2019-03-10 16:58] VITALS: BP 143/68
--- NOTE | 2019-03-10 19:09 | NUR ---
CLOSING SHIFT NOTE: Report given to NOC Kaykay CANSECO. Endorsed care of patient.
[2019-03-10 21:32] VITALS: BP 150/66
[2019-03-10] MEDS: MORPHINE SULF INJ 2 MG/ML SYRINGE 1ML IV PRN (23:26)
[2019-03-10] MEDS: ONDANSETRON HCL 4 MG/2 ML VIAL IV PRN (23:26)
[2019-03-10] MEDS: LORazepam 0.5 MG TAB PO PRN (23:27)
[2019-03-11 00:34] VITALS: BP 150/66
[2019-03-11 04:35] VITALS: BP 123/61
[2019-03-11 04:53] LABS: Eosinophils # (auto) 0.2 uL; Lymphocytes # (auto) 1.3 uL; Monocytes # (auto) 0.7 uL
[2019-03-11 04:54] LABS: Basophils # (auto) 0 uL; Basophils % (auto) 0.7 % (0.0-2.0); Eosinophils % (auto) 2.7 % (0.0-7.0); Hematocrit 24.4 % (36.0-46.0); Hemoglobin 8.2 g/dL (12.2-16.2); Lymphocytes % (auto) 18.1 % (10.0-50.0); Mean Corpuscular Hgb Conc. 33.8 g/dL (32.0-36.0); Mean Corpuscular Volume 97.5 fL (80.0-100.0); Monocytes % (auto) 10.3 % (0.0-12.0); Neutrophils # (auto) 4.7 uL; Neutrophils % (auto) 68.2 % (37.0-80.0); Platelet Count (auto) 374 10^3/uL (140-450); Red Cell Distribution Width 15.8 % (11.8-14.3)
[2019-03-11 05:16] LABS: Potassium 3.7 mmol/L (3.5-5.1)
[2019-03-11 05:19] LABS: Albumin 2.3 g/dL (3.4-5.0); Calcium 7.9 mg/dL (8.5-10.1)
[2019-03-11 05:23] LABS: BUN/Creatinine Ratio 21.5; Bilirubin, Total 0.2 mg/dL (0.2-1.0); Total Protein 5.7 g/dL (6.4-8.2)
[2019-03-11] MEDS: LEVOTHYROXINE SODIUM 50 MCG TAB PO SCH (06:32)
[2019-03-11] MEDS: InsuLIN REG 1unit/0.01ml Soln (100units/ml) SC SCH ×4 (06:32→21:42)
[2019-03-11] MEDS: ACCU-CHEK COMFORT CURVE STRIP VI SCH ×4 (06:35→21:42)
[2019-03-11] MEDS: FERROUS SULFATE 325 MG TAB PO SCH ×2 (08:00→18:25)
[2019-03-11 09:00] VITALS: BP 140/50
--- NOTE | 2019-03-11 09:40 | NUR ---
MD: Dr Gonzalez to see patient.
[2019-03-11] MEDS: BUDESONIDE (INHALATION) 0.5 MG/2 ML NEB NEB SCH ×2 (09:55→22:05)
[2019-03-11] MEDS ORDERED: GASTROGRAFIN 30 ML SOL ONE (09:56)
[2019-03-11] MEDS ORDERED: metroNIDAZOLE 500MG/100ML 100 ML IV ONE (10:15)
[2019-03-11] MEDS: cefTRIAXone 1GM/50ML D5W 50 ML IV SCH (10:23)
[2019-03-11] MEDS: FUROSEMIDE 40 MG TAB PO SCH (10:23)
[2019-03-11] MEDS: METOPROLOL TARTRATE 25 MG TAB PO SCH ×2 (10:24→21:42)
--- NOTE | 2019-03-11 11:44 | NUR ---
Nutrition Assessment Notes please see attached link for complete assessment Est. Needs BW [id number] kcal (23-25 kcal/kgBW), 52-66 gms pro (0.8-1.0 gms/kgBW d /t elev RFT). Will continue to monitor pertinent labs and reassess nutrient need prn Addendum: 03/11/19 at [address] Amended: Links added.
[2019-03-11 12:00] VITALS: BP 148/60
--- NOTE | 2019-03-11 12:20 | NUR ---
RADIOLOGY: Patient off floor via bed to radiology.
[2019-03-11] MEDS: metroNIDAZOLE 500MG/100ML 100 ML IV SCH ×2 (14:28→21:42)
[2019-03-11 16:00] VITALS: BP 151/74
[2019-03-11] MEDS: MORPHINE SULF INJ 2 MG/ML SYRINGE 1ML IV PRN ×2 (16:11→21:43)
--- NOTE | 2019-03-11 16:24 | NUR ---
MD: Dr Em at bedside. Gave patient and family results of CT Abdomen.
--- NOTE | 2019-03-11 19:25 | NUR ---
CLOSING SHIFT NOTE: Report given to NOC Candace CANSECO. Endorsed care of patient.
--- NOTE | 2019-03-11 20:00 | NUR ---
RECEIVED PT IN BED, A/O X4, IN NO ACUTE DISTRESS, DENIES PAIN. PT A LITTLE HARD OF HEARING. POC REVIEWED WITH PT, VERBALIZED UNDERSTANDING. CALL LIGHT WITHIN REACH, ENCOURAGED TO CALL IF HELP IS NEEDED. SIDE RAILS UP X2, BED IN LOWEST LOCKED POSITION, NON SKID SOCKS ON, BED ALARM ON. CONTINUE CARE.
[2019-03-11 22:00] VITALS: BP 141/66
[2019-03-12 04:30] VITALS: BP 144/77
[2019-03-12] MEDS: metroNIDAZOLE 500MG/100ML 100 ML IV SCH ×3 (06:16→22:00)
[2019-03-12] MEDS: MORPHINE SULF INJ 2 MG/ML SYRINGE 1ML IV PRN ×3 (06:17→21:30)
[2019-03-12] MEDS: InsuLIN REG 1unit/0.01ml Soln (100units/ml) SC SCH ×4 (06:17→22:00)
[2019-03-12] MEDS: LEVOTHYROXINE SODIUM 50 MCG TAB PO SCH (06:17)
[2019-03-12] MEDS: ACCU-CHEK COMFORT CURVE STRIP VI SCH ×4 (06:17→22:29)
[2019-03-12 06:33] LABS: Basophils # (auto) 0 uL; Basophils % (auto) 0.7 % (0.0-2.0); Eosinophils # (auto) 0.2 uL; Eosinophils % (auto) 3.2 % (0.0-7.0); Hemoglobin 8.8 g/dL (12.2-16.2); Lymphocytes # (auto) 0.9 uL; Lymphocytes % (auto) 15.4 % (10.0-50.0); Mean Corpuscular Hemoglobin 34.2 pg (28.0-32.0); Mean Corpuscular Hgb Conc. 35.3 g/dL (32.0-36.0); Mean Corpuscular Volume 96.8 fL (80.0-100.0); Monocytes # (auto) 0.7 uL; Neutrophils # (auto) 4.3 uL; Neutrophils % (auto) 69.7 % (37.0-80.0); Platelet Count (auto) 391 10^3/uL (140-450); Red Blood Cells 2.59 10^6/uL (4.0-5.20); Red Cell Distribution Width 15.5 % (11.8-14.3); White Blood Cell 6.1 10^3/uL (4.4-10.8)
[2019-03-12 06:49] LABS: BUN/Creatinine Ratio 21.5; Calcium 8.1 mg/dL (8.5-10.1); Potassium 3.7 mmol/L (3.5-5.1)
--- NOTE | 2019-03-12 07:30 | NUR ---
OPENING NOTE OBSERVED PT SITTING UP IN BED, NO SOB/DISTRESS NOTED. UPDATED ON POC, PT VERBALIZED UNDERSTANDING. CALL LIGHT WITHIN REACH. PT ENCOURAGED TO CONTACT STAFF FOR PRN ASSISTANCE. BED ALARM IS ON. FALL PRECAUTIONS IN PLACE. WILL CONTINUE TO MONITOR Q1H AND PRN. CONTINUE PT CARE.
[2019-03-12] MEDS: FERROUS SULFATE 325 MG TAB PO SCH ×2 (07:31→17:24)
[2019-03-12] MEDS: ONDANSETRON HCL 4 MG/2 ML VIAL IV PRN (08:33)
[2019-03-12] MEDS: cefTRIAXone 1GM/50ML D5W 50 ML IV SCH (08:33)
--- NOTE | 2019-03-12 08:37 | NUR ---
PT C/O NAUSEA PT SITTING UP IN BED, C/O NAUSEA. NO VOMITING NOTED AT THIS TIME, BUT PT STATING SHE FEELS 'LIKE I COULD THROW UP'. PT STATING SHE IS 'JUST TIRED OF FEELING LIKE THIS'. PT MEDICATED ACCORDING TO MD ORDER WITH LONNY CUELLAR. WILL MONITOR EFFECTIVENESS.
[2019-03-12 09:00] VITALS: BP 138/79
--- NOTE | 2019-03-12 09:00 | NUR ---
AT BEDSIDE DR. GRAVES AT BEDSIDE DISCUSSING POC WITH PT.
[2019-03-12] MEDS: METOPROLOL TARTRATE 25 MG TAB PO SCH ×2 (09:08→22:00)
[2019-03-12] MEDS: FUROSEMIDE 40 MG TAB PO SCH (09:08)
[2019-03-12] MEDS: BUDESONIDE (INHALATION) 0.5 MG/2 ML NEB NEB SCH ×2 (10:45→23:00)
[2019-03-12 12:36] VITALS: BP 129/66
[2019-03-12] MEDS: PANTOPRAZOLE 40 MG TAB PO SCH ×2 (13:09→22:00)
[2019-03-12 17:22] VITALS: BP 155/76
--- NOTE | 2019-03-12 17:34 | NUR ---
ROUNDS PT RESTING IN BED, DENIES ANY DISTRESS AT THIS TIME. NO NAUSEA REPORTED. STATING SHE IS 'COMFORTABLE' AT THIS TIME. PT STATING SHE 'MIGHT WANT PAIN MEDICATION LATER'. PRN SCHEDULE REINFORCED WITH PT. PT VERBALIZED UNDERSTANDING. RE-ENCOURAGED TO CONTACT STAFF FOR PRN ASSISTANCE. CALL LIGHT WITHIN REACH.
[2019-03-12] MEDS: HYOSCYAMINE SULF 0.125 MG ODT TAB PO PRN (18:46)
--- NOTE | 2019-03-12 19:16 | NUR ---
PT CARE ENDORSED PT CARE ENDORSED TO CELINA CANSECO.
--- NOTE | 2019-03-12 20:00 | NUR ---
OPENING NOTE RECEIVED REPORT FROM DAYSHIFT RN. ASSUMING ROLE OF CARE OF PATIENT AT THIS TIME. PATIENT SHOWING NO SIGN OF DISTRESS, SHORTNESS OF BREATH, AND PATIENT DENIES ANY PAIN AT THIS TIME. PATIENT EDUCATED ON PLAN OF CARE FOR THE NIGHT AND PATIENT VERBALIZED UNDERSTANDING. BED LOWERED, CALL LIGHT WITHIN REACH, AND PATIENT WILL BE ROUNDED ON EVERY HOUR AND NEEDED.
[2019-03-12 22:00] VITALS: BP 147/70
--- NOTE | 2019-03-12 22:30 | NUR ---
IV removal/ INSERTION IV DC'd with clean sterile technique, catheter fully intact. Pressure dressing applied to site. Patient tolerated well. IV access obtained, via clean sterile technique by inserting 22 gauge catheter at LEFT FOREARM after 3 attempt(s). IV secured properly. No trauma to site. Patient tolerated well. NOTE: []
[2019-03-13 04:31] VITALS: BP 112/43
[2019-03-13] MEDS: metroNIDAZOLE 500MG/100ML 100 ML IV SCH (05:53)
[2019-03-13] MEDS: InsuLIN REG 1unit/0.01ml Soln (100units/ml) SC SCH ×2 (06:00→11:07)
[2019-03-13] MEDS: ACCU-CHEK COMFORT CURVE STRIP VI SCH ×2 (06:00→11:07)
[2019-03-13 06:14] LABS: Basophils # (auto) 0.1 uL; Basophils % (auto) 1.1 % (0.0-2.0); Eosinophils # (auto) 0.2 uL; Eosinophils % (auto) 3.5 % (0.0-7.0); Hematocrit 24.4 % (36.0-46.0); Hemoglobin 8.5 g/dL (12.2-16.2); Lymphocytes # (auto) 1.2 uL; Lymphocytes % (auto) 19.6 % (10.0-50.0); Mean Corpuscular Hemoglobin 33.8 pg (28.0-32.0); Mean Corpuscular Hgb Conc. 34.8 g/dL (32.0-36.0); Monocytes # (auto) 0.6 uL; Monocytes % (auto) 9.6 % (0.0-12.0); Neutrophils # (auto) 4.2 uL; Neutrophils % (auto) 66.2 % (37.0-80.0); Nucleated Red Blood Cells % 0.1 %; Platelet Count (auto) 443 10^3/uL (140-450); Red Blood Cells 2.51 10^6/uL (4.0-5.20); Red Cell Distribution Width 15.9 % (11.8-14.3); White Blood Cell 6.3 10^3/uL (4.4-10.8)
[2019-03-13 06:15] LABS: BUN/Creatinine Ratio 22.3; Calcium 8.3 mg/dL (8.5-10.1); Potassium 3.5 mmol/L (3.5-5.1)
[2019-03-13] MEDS: LEVOTHYROXINE SODIUM 50 MCG TAB PO SCH (06:20)
--- NOTE | 2019-03-13 07:30 | NUR ---
OPENING NOTE OBSERVED PT SITTING UP IN BED, NO SOB/DISTRESS NOTED. PT CONTINUES TO COMPLAIN GENERALIZED ABDOMINAL PAIN, STATING HER NAUSEA HAS IMPROVED. PT UPDATED ON POC AND PT VERBALIZED UNDERSTANDING. FALL PRECAUTIONS IN PLACE. BED ALARM IS ON. CALL LIGHT IS WITHIN REACH. WILL CONTINUE TO MONITOR Q1H AND PRN. CONTINUE PT CARE.
[2019-03-13] MEDS: FERROUS SULFATE 325 MG TAB PO SCH (07:52)
[2019-03-13] MEDS: cefTRIAXone 1GM/50ML D5W 50 ML IV SCH (09:23)
[2019-03-13] MEDS: MORPHINE SULF INJ 2 MG/ML SYRINGE 1ML IV PRN (09:23)
[2019-03-13] MEDS: METOPROLOL TARTRATE 25 MG TAB PO SCH (09:25)
[2019-03-13] MEDS: PANTOPRAZOLE 40 MG TAB PO SCH (09:25)
[2019-03-13] MEDS: FUROSEMIDE 40 MG TAB PO SCH (09:25)
[2019-03-13] MEDS: HYOSCYAMINE SULF 0.125 MG ODT TAB PO PRN (09:25)
[2019-03-13] MEDS: BUDESONIDE (INHALATION) 0.5 MG/2 ML NEB NEB SCH (09:26)
[2019-03-13 09:43] VITALS: BP 137/58
[2019-03-13 10:37] VITALS: BP 137/58
--- NOTE | 2019-03-13 12:18 | NUR ---
Discharge instructions given as ordered. Encourage to follow up with PMD as instructed. Alissa Tejeda in to see patient for change of follow up appointment. Change of date/time reinforced with patietns son at bedside. All questions and concerns addressed. Patient verbalized understanding. DC prescriptions delivered at bedside by [facility]. Medication reconciliation form completed and copy given to patient. IV removed with catheter intact, pressure dressing applied, . Patient taken to vehicle via wheelchair with all personal belongings, accompanied by staff and family member. No distress noted at time of departure.
== END 2019-03-13 12:18 | disposition home or self-care (01) | DRG 377 ==
LOC: TELE-CENTR 14:15 → CENTRAL 03-09 11:24
PROVIDERS: ADMIT Nurse Practitioner Acute Care; ATTEND Internal Medicine
PROC: 30233N1 Transfusion of Nonautologous Red Blood Cells into Peripheral Vein, Percutaneous Approach (ICD-10-PCS; 2019-03-07)
PROC: 0DJ08ZZ Inspection of Upper Intestinal Tract, Via Natural or Artificial Opening Endoscopic (ICD-10-PCS; principal; 2019-03-08 11:24)
PROC: 0DJD8ZZ Inspection of Lower Intestinal Tract, Via Natural or Artificial Opening Endoscopic (ICD-10-PCS; 2019-03-08 11:24)
DX: K57.31 Diverticulosis of large intestine without perforation or abscess with bleeding (principal); I50.23 Acute on chronic systolic (congestive) heart failure; N17.0 Acute kidney failure with tubular necrosis; N18.4 Chronic kidney disease, stage 4 (severe); N39.0 Urinary tract infection, site not specified; I13.0 Hypertensive heart and chronic kidney disease with heart failure and stage 1 through stage 4 chronic kidney disease, or unspecified chronic kidney disease; D64.9 Anemia, unspecified; E11.22 Type 2 diabetes mellitus with diabetic chronic kidney disease; I12.9 Hypertensive chronic kidney disease with stage 1 through stage 4 chronic kidney disease, or unspecified chronic kidney disease; E78.5 Hyperlipidemia, unspecified; E03.9 Hypothyroidism, unspecified; M54.9 Dorsalgia, unspecified; J44.9 Chronic obstructive pulmonary disease, unspecified; E11.40 Type 2 diabetes mellitus with diabetic neuropathy, unspecified; F17.200 Nicotine dependence, unspecified, uncomplicated; M19.90 Unspecified osteoarthritis, unspecified site; N18.9 Chronic kidney disease, unspecified; N28.1 Cyst of kidney, acquired; Z79.899 Other long term (current) drug therapy
CPT/HCPCS: 36415; 71045; 72070; 72100; 74176; 80048; 80053; 80061; 81001; 82962; 83036; 83540; 83550; 83735; 84443; 85025; 85610; 85730; 86850; 86900; 86901; 86920; 94640; 97116; 97163; 97530; C9113; G0378; J0696; J1815; J2250; J2405; J3490

== ENCOUNTER 2019-03-19 16:33 | Emergency (ER) | payer MEDICARE, OTHER ==
[~2019-03-19] VITALS: Ht 162.6 cm; Wt 68.0 kg
[2019-03-19 18:02] LABS: Albumin 3.3 g/dL (3.4-5.0); BUN/Creatinine Ratio 16.6; Calcium 8.6 mg/dL (8.5-10.1); Potassium 4.5 mmol/L (3.5-5.1)
[2019-03-19 18:04] LABS: Basophils # (auto) 0.1 uL; Eosinophils # (auto) 0.2 uL; Eosinophils % (auto) 2.1 % (0.0-7.0); Hematocrit 28.9 % (36.0-46.0); Hemoglobin 9.8 g/dL (12.2-16.2); Lymphocytes # (auto) 2.2 uL; Lymphocytes % (auto) 24.7 % (10.0-50.0); Mean Corpuscular Hemoglobin 32.3 pg (28.0-32.0); Mean Corpuscular Hgb Conc. 33.9 g/dL (32.0-36.0); Mean Corpuscular Volume 95.4 fL (80.0-100.0); Monocytes # (auto) 0.8 uL; Monocytes % (auto) 8.7 % (0.0-12.0); Neutrophils # (auto) 5.6 uL; Neutrophils % (auto) 63.5 % (37.0-80.0); Platelet Count (auto) 639 10^3/uL (140-450); Red Blood Cells 3.03 10^6/uL (4.0-5.20); Red Cell Distribution Width 14.3 % (11.8-14.3); White Blood Cell 8.8 10^3/uL (4.4-10.8)
[2019-03-19 18:06] LABS: Bilirubin, Total 0.2 mg/dL (0.2-1.0); Total Protein 7.4 g/dL (6.4-8.2)
[2019-03-19 18:34] VITALS: BP 166/84
== END 2019-03-19 19:51 | disposition home or self-care (01) ==
LOC: ER 16:33
DX: K92.1 Melena (principal); D64.9 Anemia, unspecified; E11.22 Type 2 diabetes mellitus with diabetic chronic kidney disease; I13.0 Hypertensive heart and chronic kidney disease with heart failure and stage 1 through stage 4 chronic kidney disease, or unspecified chronic kidney disease; N18.9 Chronic kidney disease, unspecified; I50.9 Heart failure, unspecified; E78.5 Hyperlipidemia, unspecified; J44.9 Chronic obstructive pulmonary disease, unspecified; Z90.49 Acquired absence of other specified parts of digestive tract; Z87.440 Personal history of urinary (tract) infections
CPT/HCPCS: 36415; 80053; 85025

== ENCOUNTER 2019-06-11 15:55 | Inpatient (IN) | payer MEDICARE, OTHER | END 2019-06-15 13:44 | disposition home or self-care (01) | LOC: TELE-WESTW 06-14 13:16 → ER 15:55 → TELE-WESTW 23:34 | PROC: B2111ZZ Fluoroscopy of Multiple Coronary Arteries using Low Osmolar Contrast (ICD-10-PCS; principal; ~2019-06-11) | PROC: 4A023N7 Measurement of Cardiac Sampling and Pressure, Left Heart, Percutaneous Approach (ICD-10-PCS; ~2019-06-11) | PROC: B2151ZZ Fluoroscopy of Left Heart using Low Osmolar Contrast (ICD-10-PCS; ~2019-06-11) | DX: I25.10 Atherosclerotic heart disease of native coronary artery without angina pectoris (principal); I50.33 Acute on chronic diastolic (congestive) heart failure; I13.0 Hypertensive heart and chronic kidney disease with heart failure and stage 1 through stage 4 chronic kidney disease, or unspecified chronic kidney disease; E44.0 Moderate protein-calorie malnutrition; N18.3 Chronic kidney disease, stage 3 (moderate); E83.51 Hypocalcemia; E83.42 Hypomagnesemia ==

== ENCOUNTER 2019-06-22 10:33 | Inpatient (IN) | payer MEDICARE, OTHER ==
[~2019-06-22] VITALS: Ht 162.6 cm; Wt 65.7 kg
[~2019-06-22 10:33] MED LIST changes: +ACET-1156 PO; +FERR-20 PO; +GABA300C10 PO; +HYOS0.1269 PO; +LEVO50TA7 PO; +LISI40TA PO; +OMEP20TA PO; -PANT40T PO
[2019-06-22 12:18] LABS: Basophils # (auto) 0.1 uL; Monocytes # (auto) 0.6 uL; White Blood Cell 7.6 10^3/uL (4.4-10.8)
[2019-06-22 12:20] LABS: Basophils % (auto) 1.2 % (0.0-2.0); Eosinophils # (auto) 0.2 uL; Eosinophils % (auto) 3.3 % (0.0-7.0); Hematocrit 30.3 % (36.0-46.0); Hemoglobin 10.2 g/dL (12.2-16.2); Lymphocytes % (auto) 25.9 % (10.0-50.0); Mean Corpuscular Hemoglobin 31.3 pg (28.0-32.0); Mean Corpuscular Hgb Conc. 33.8 g/dL (32.0-36.0); Mean Corpuscular Volume 92.6 fL (80.0-100.0); Monocytes % (auto) 8.3 % (0.0-12.0); Neutrophils # (auto) 4.7 uL; Neutrophils % (auto) 61.3 % (37.0-80.0); Red Blood Cells 3.27 10^6/uL (4.0-5.20); Red Cell Distribution Width 13.7 % (11.8-14.3)
[2019-06-22 12:33] LABS: Anion Gap 12 (5-15); Blood Urea Nitrogen 29 mg/dL (7-18); Calcium 8.4 mg/dL (8.5-10.1); Carbon Dioxide 23 mmol/L (21-32); Chloride 103 mmol/L (98-107); Glucose 100 mg/dL (74-106); Magnesium 1.4 mg/dL (1.6-2.6); Potassium 3.8 mmol/L (3.5-5.1); Sodium 138 mmol/L (136-145)
[2019-06-22 12:36] LABS: Alanine Aminotransferase 22 U/L (13-56); Aspartate Aminotransferase 32 U/L (15-37); BUN/Creatinine Ratio 15.3; GFR African American 33 mL/min; GFR Non-African American 27 mL/min
[2019-06-22 12:41] LABS: Alkaline Phosphatase 82 U/L (45-117); Bilirubin, Total 0.4 mg/dL (0.2-1.0); Total Protein 6.6 g/dL (6.4-8.2)
[2019-06-22 13:51] LABS: Platelet Count (auto) 520 10^3/uL (140-450)
[2019-06-22] MEDS ORDERED: SODIUM CHLORIDE 0.9% 1,000 ML IV ONE (14:53)
[2019-06-22] MEDS ORDERED: PIPERACILLIN-TAZOB 3.375GM 100 ML IV ONE (15:00)
[2019-06-22] MEDS ORDERED: FUROSEMIDE 40 MG/4 ML VIAL IV ONE (15:00)
[2019-06-22] MEDS ORDERED: PROMETHAZINE HCL 25 MG/ML 1ML IV PRN (17:30)
[2019-06-22] MEDS ORDERED: NITROGLYCERIN 0.4 MG SL TAB SL PRN (17:30)
[2019-06-22] MEDS ORDERED: LACTULOSE 20Gm/30ML SOLN PO PRN (17:30)
[2019-06-22] MEDS ORDERED: ACETAMINOPHEN 500 MG TAB PO PRN (17:30)
[2019-06-22] MEDS ORDERED: DEXTROSE (50%) 50ML SYRG IV PRN (17:30)
[2019-06-22] MEDS ORDERED: MORPHINE SULF INJ 2 MG/ML SYRINGE 1ML IV PRN (17:30)
[2019-06-22] MEDS ORDERED: TEMAZEPAM 15 MG CAP PO PRN (17:30)
[2019-06-22] MEDS ORDERED: traMADol HCL 50 MG TAB PO PRN (17:30)
[2019-06-22 17:48] LABS: Urine Bacteria NONE SEEN /hpf (None Seen); Urine Blood TRACE /uL (Negative); Urine Specific Gravity 1.008 (1.001-1.035); Urine WBC 2 /hpf (0 - 5)
[2019-06-22] MEDS: FERROUS SULFATE 325 MG TAB PO SCH (17:52)
[2019-06-22] MEDS: CALCIUM ACETATE 667 MG CAP PO SCH (17:52)
[2019-06-22 20:35] VITALS: BP 204/84
[2019-06-22] MEDS ORDERED: hydrALAZINE HCL 20 MG/ML VL IV PRN (20:45)
[2019-06-22] MEDS: ATORVASTATIN 20 MG TAB PO SCH (21:18)
[2019-06-22] MEDS: GABAPENTIN 300 MG CAP PO SCH (21:18)
[2019-06-22] MEDS: InsuLIN REG 1unit/0.01ml Soln (100units/ml) SC SCH (21:19)
[2019-06-22] MEDS: SODIUM CHLOR 0.9% PF (SALINE LOCK) 10ML VIAL/SYR IV SCH (21:19)
[2019-06-22] MEDS: CARVEDILOL 3.125 MG TAB PO SCH (21:19)
[2019-06-22] MEDS: ACCU-CHEK COMFORT CURVE STRIP VI SCH (21:19)
[2019-06-22 22:29] VITALS: BP_SYST 104; BP_SYST 204; BP_DIAS 84
[2019-06-22 23:00] VITALS: BP 164/74
--- NOTE | 2019-06-22 23:21 | NUR ---
Telemetry admit from NYLA DOTSON admitted to Telemetry unit after SBAR received. Patient oriented to JEREMY MONTILLA RN primary RN, unit, room, bed, and unit policies regarding patient care and visiting hours. Patient now on continuous telemetry monitoring, tele box #45 and telemetry reading on arrival to unit is NSR. Patient placed on 2L bedside oxygen, weighed by bedscale and encouraged to call if they need something. All questions and concerns addressed, patient verbalized understanding. Note:
[2019-06-23] VITALS (7 sets, daily range): BP systolic 138–165; BP diastolic 58–84
[2019-06-23] MEDS: GABAPENTIN 300 MG CAP PO SCH (06:10)
[2019-06-23] MEDS: SODIUM CHLOR 0.9% PF (SALINE LOCK) 10ML VIAL/SYR IV SCH ×3 (06:10→20:58)
[2019-06-23] MEDS: InsuLIN REG 1unit/0.01ml Soln (100units/ml) SC SCH ×4 (06:11→21:27)
[2019-06-23] MEDS: LEVOTHYROXINE SODIUM 50 MCG TAB PO SCH (06:11)
[2019-06-23] MEDS: ACCU-CHEK COMFORT CURVE STRIP VI SCH ×4 (06:11→20:57)
[2019-06-23] MEDS: FERROUS SULFATE 325 MG TAB PO SCH ×2 (08:23→18:07)
[2019-06-23] MEDS: CALCIUM ACETATE 667 MG CAP PO SCH ×2 (08:23→12:00)
[2019-06-23] MEDS: LISINOPRIL 20 MG TAB PO SCH (09:35)
[2019-06-23] MEDS: PANTOPRAZOLE 40 MG TAB PO SCH (09:35)
[2019-06-23] MEDS: ASPirin 81 mg TAB PO SCH (09:36)
[2019-06-23] MEDS: CARVEDILOL 3.125 MG TAB PO SCH ×2 (09:36→21:35)
[2019-06-23] MEDS: ENOXAPARIN SOD 30 MG/0.3 ML SYRINGE SC SCH (09:37)
[2019-06-23] MEDS: Fenofibrate 145MG PO SCH (09:38)
[2019-06-23] MEDS: SITAGLIPTIN PHOSPHATE 50 MG PO SCH (09:38)
[2019-06-23] MEDS: POTASSIUM CHL 20 Meq TABLET PO SCH (09:41)
[2019-06-23] MEDS: NITROGLYCERIN 0.2MG/HR TOPICAL PATCH TD SCH (09:45)
[2019-06-23] MEDS ORDERED: FUROSEMIDE 40 MG/4 ML VIAL IV SCH (10:00)
[2019-06-23] MEDS ORDERED: ENOXAPARIN SOD 40 MG/0.4 ML SYRINGE SC SCH (10:00)
--- NOTE | 2019-06-23 12:20 | NUR ---
Per Dr. Roe , if c-diff come positive, give Vanco 125 mg PO Q 6 hours and Flagly 500 mg IV Q8 .
[2019-06-23] MEDS: MAGNESIUM OXIDE 400 MG TAB PO SCH ×2 (14:22→20:58)
[2019-06-23] MEDS: ATORVASTATIN 20 MG TAB PO SCH (20:57)
[2019-06-24 04:26] VITALS: BP 133/66
[2019-06-24 06:04] LABS: Basophils # (auto) 0.1 uL; Eosinophils # (auto) 0.4 uL; Eosinophils % (auto) 6.4 % (0.0-7.0); Hematocrit 25.9 % (36.0-46.0); Hemoglobin 8.8 g/dL (12.2-16.2); Lymphocytes # (auto) 1.8 uL; Lymphocytes % (auto) 28.7 % (10.0-50.0); Mean Corpuscular Hemoglobin 31.7 pg (28.0-32.0); Mean Corpuscular Volume 93.4 fL (80.0-100.0); Monocytes # (auto) 0.6 uL; Monocytes % (auto) 9.6 % (0.0-12.0); Neutrophils # (auto) 3.3 uL; Neutrophils % (auto) 54.3 % (37.0-80.0); Nucleated Red Blood Cells % 0.1 %; Platelet Count (auto) 385 10^3/uL (140-450); Red Blood Cells 2.77 10^6/uL (4.0-5.20); Red Cell Distribution Width 13.5 % (11.8-14.3); White Blood Cell 6.1 10^3/uL (4.4-10.8)
[2019-06-24 06:13] LABS: Calcium 7.3 mg/dL (8.5-10.1); Potassium 3.8 mmol/L (3.5-5.1)
[2019-06-24 06:16] LABS: BUN/Creatinine Ratio 14.7
[2019-06-24] MEDS: LEVOTHYROXINE SODIUM 50 MCG TAB PO SCH (06:28)
[2019-06-24] MEDS: ACCU-CHEK COMFORT CURVE STRIP VI SCH ×4 (06:28→21:30)
[2019-06-24] MEDS: SODIUM CHLOR 0.9% PF (SALINE LOCK) 10ML VIAL/SYR IV SCH ×3 (06:28→21:29)
[2019-06-24] MEDS: InsuLIN REG 1unit/0.01ml Soln (100units/ml) SC SCH ×4 (06:43→21:37)
--- NOTE | 2019-06-24 08:00 | NUR ---
Opening Shift Note Assumed care of patient, awake and alert, oriented x 4 and verbally responsive. Respiratory even and unlabored. No S/S of distress/SOB or pain. Skin is warm and dry to touch, no s/s of hyperglycemia or hypoglycemia noted. Instructed on POC and to call for assist PRN, will continue to monitor for changes Q1hr and PRN.
[2019-06-24] MEDS: FERROUS SULFATE 325 MG TAB PO SCH ×2 (08:03→18:17)
[2019-06-24 08:31] VITALS: BP 152/74
[2019-06-24] MEDS: PANTOPRAZOLE 40 MG TAB PO SCH (09:23)
[2019-06-24] MEDS: MAGNESIUM OXIDE 400 MG TAB PO SCH ×2 (09:23→21:28)
[2019-06-24] MEDS: ASPirin 81 mg TAB PO SCH (09:24)
[2019-06-24] MEDS: CARVEDILOL 3.125 MG TAB PO SCH ×2 (09:24→21:30)
[2019-06-24] MEDS: POTASSIUM CHL 20 Meq TABLET PO SCH (09:24)
[2019-06-24] MEDS: LISINOPRIL 20 MG TAB PO SCH (09:25)
[2019-06-24] MEDS: ENOXAPARIN SOD 30 MG/0.3 ML SYRINGE SC SCH (09:25)
[2019-06-24] MEDS: Fenofibrate 145MG PO SCH (09:25)
[2019-06-24] MEDS: SITAGLIPTIN PHOSPHATE 50 MG PO SCH (09:31)
[2019-06-24] MEDS: NITROGLYCERIN 0.2MG/HR TOPICAL PATCH TD SCH (09:32)
[2019-06-24] MEDS ORDERED: GABAPENTIN 300 MG CAP PO SCH (10:00)
--- NOTE | 2019-06-24 10:30 | NUR ---
Dr. Shah at bedside, received new orders, noted and carried it out.
[2019-06-24] MEDS ORDERED: LEVOFLOXACIN 500MG 100 ML IV ONE (10:45)
[2019-06-24] MEDS ORDERED: metroNIDAZOLE 500MG/100ML 100 ML IV ONE (11:00)
--- NOTE | 2019-06-24 12:08 | NUR ---
IV insertion IV access obtained, via clean sterile technique by inserting 22 gauge catheter at after attempt(s). IV secured properly. No trauma to site. Patient tolerated well.
[2019-06-24 13:07] VITALS: BP 153/74
[2019-06-24 17:11] VITALS: BP 123/80
[2019-06-24 21:00] VITALS: BP 151/88
[2019-06-24] MEDS: metroNIDAZOLE 500MG/100ML 100 ML IV SCH (21:29)
[2019-06-24] MEDS: ATORVASTATIN 20 MG TAB PO SCH (21:30)
[2019-06-25 05:00] VITALS: BP 133/74
[2019-06-25 05:49] LABS: Basophils # (auto) 0.1 uL; Basophils % (auto) 0.8 % (0.0-2.0); Eosinophils # (auto) 0.3 uL; Eosinophils % (auto) 4.9 % (0.0-7.0); Hematocrit 26.8 % (36.0-46.0); Hemoglobin 9.1 g/dL (12.2-16.2); Lymphocytes # (auto) 1.7 uL; Lymphocytes % (auto) 26.3 % (10.0-50.0); Mean Corpuscular Hemoglobin 31.5 pg (28.0-32.0); Mean Corpuscular Hgb Conc. 33.9 g/dL (32.0-36.0); Mean Corpuscular Volume 92.8 fL (80.0-100.0); Monocytes # (auto) 0.6 uL; Monocytes % (auto) 9.7 % (0.0-12.0); Neutrophils # (auto) 3.8 uL; Neutrophils % (auto) 58.3 % (37.0-80.0); Platelet Count (auto) 358 10^3/uL (140-450); Red Blood Cells 2.89 10^6/uL (4.0-5.20); Red Cell Distribution Width 13.2 % (11.8-14.3); White Blood Cell 6.5 10^3/uL (4.4-10.8)
[2019-06-25 06:05] LABS: BUN/Creatinine Ratio 20.9; Calcium 7.3 mg/dL (8.5-10.1); Magnesium 1.3 mg/dL (1.6-2.6); Potassium 4.4 mmol/L (3.5-5.1)
[2019-06-25] MEDS: ACCU-CHEK COMFORT CURVE STRIP VI SCH ×3 (06:06→17:57)
[2019-06-25] MEDS: InsuLIN REG 1unit/0.01ml Soln (100units/ml) SC SCH ×3 (06:06→17:00)
[2019-06-25] MEDS: LEVOTHYROXINE SODIUM 50 MCG TAB PO SCH (06:06)
[2019-06-25] MEDS: metroNIDAZOLE 500MG/100ML 100 ML IV SCH ×2 (06:06→16:39)
[2019-06-25] MEDS: SODIUM CHLOR 0.9% PF (SALINE LOCK) 10ML VIAL/SYR IV SCH ×2 (06:06→15:23)
[2019-06-25] MEDS: FERROUS SULFATE 325 MG TAB PO SCH ×2 (08:01→18:42)
[2019-06-25 08:58] VITALS: BP 124/68
[2019-06-25] MEDS: ENOXAPARIN SOD 30 MG/0.3 ML SYRINGE SC SCH (09:27)
[2019-06-25] MEDS: ASPirin 81 mg TAB PO SCH (09:27)
[2019-06-25] MEDS: SITAGLIPTIN PHOSPHATE 50 MG PO SCH (09:28)
[2019-06-25] MEDS: CARVEDILOL 3.125 MG TAB PO SCH (09:28)
[2019-06-25] MEDS: Fenofibrate 145MG PO SCH (09:28)
[2019-06-25] MEDS: POTASSIUM CHL 20 Meq TABLET PO SCH (09:28)
[2019-06-25] MEDS: NITROGLYCERIN 0.2MG/HR TOPICAL PATCH TD SCH (09:29)
[2019-06-25] MEDS: MAGNESIUM OXIDE 400 MG TAB PO SCH (09:29)
[2019-06-25] MEDS: PANTOPRAZOLE 40 MG TAB PO SCH (09:29)
[2019-06-25] MEDS ORDERED: LEVOFLOXACIN 500MG 100 ML IV SCH (10:00)
[2019-06-25] MEDS ORDERED: LEVOFLOXACIN 250MG 50 ML IV SCH (10:00)
[2019-06-25] MEDS: MAGNESIUM SULFATE 1GM/100ML 100 ML IV SCH ×4 (10:22→15:22)
--- NOTE | 2019-06-25 11:03 | NUR ---
Per Danay Puga/Sheila white once patient leaves.
--- NOTE | 2019-06-25 11:11 | NUR ---
Pt is an alert and oriented female that resides at home with her son and his family. Pt is being seen by [facility] and uses a rollator in the home. Per MD order pt will need physical therapy rehab in SNF upon discharge. Pt requesting facility that will allow her to smoke. Pt requesting placement at [facility] if beds available because she was informed by MD that [facility] has a no smoking policy. Will followup with [facility] coordinator for admission. Addendum: 06/25/19 at 1713 by NIKKI FITZGERALD Amended: Links added.
--- NOTE | 2019-06-25 11:36 | NUR ---
Nutrition Assessment Notes please see attached link for complete assessment Est. Needs BW (66 kg): [id number] kcal (23-25 kcal/kgBW), 52-66 gms pro (1.0-1.1 gms/kgBW r/t elev RFT CKD). Will continue to monitor pertinent labs and reassess nutrient need prn Addendum: 06/25/19 at [address] Amended: Links added.
[2019-06-25 12:00] VITALS: BP 151/81
[2019-06-25] MEDS ORDERED: LOPERAMIDE HCL 2 MG CAP PO PRN (13:30)
--- NOTE | 2019-06-25 13:32 | NUR ---
White catheter dc'd Order to discontinue white catheter. White dc'd with clean technique following deflation of balloon. Patient tolerated well with no complaints of pain. Continue care.
--- NOTE | 2019-06-25 13:55 | NUR ---
Dr. Shah paged regarding SNF paper need to be signed.
--- NOTE | 2019-06-25 13:58 | NUR ---
Received a call back from Dr. Shah, will come back to sign paper.
--- NOTE | 2019-06-25 14:44 | NUR ---
Report given to Antonella CANSECO ([facility]), patient is going to room 55A, patient and family notified.
[2019-06-25 14:45] VITALS: BP 151/81
--- NOTE | 2019-06-25 15:52 | NUR ---
Per consult for SNF Placement. Information and choice letter was given to Pt. Pt requested [facility]. PT verbalize and agrees d/c plan. Contacted [facility] Ph: ) Fax: ) faxed medical records. Per Bhavya from [facility] Pt has been accepted to room [address] MD [address] Hernandez. Contacted [facility] Ph: ) spoke to Kat. Per Kat from [facility] pt will be machine operator picker at 21:30 via Informed HARLEEN Hong. Addendum: 06/25/19 at 1717 by LYUBOV JEAN Amended: Links added.
[2019-06-25 16:00] VITALS: BP 165/61
--- NOTE | 2019-06-25 16:00 | NUR ---
Patient urinated clear yellow urine.
--- NOTE | 2019-06-25 16:00 | NUR ---
Received a call from Beronica (AMILCAR) stated that time to pick at 6-7 PM. Patient notified.
[2019-06-25 17:54] VITALS: BP 156/76
--- NOTE | 2019-06-25 18:30 | NUR ---
Called [facility] Ph: ( [phone]) regarding time to cigar packer and picker stated cigar packer and picker time changed to 21.30
--- NOTE | 2019-06-25 19:15 | NUR ---
OPENING SHIFT NOTE Assumed care of patient. Awake and alert x4. Currently on room air with no s/s of SOB or distress. Denies pain at this time. Patient requires 2 person assist for transfers due to diabetic neuropathy in bilateral lower extremities. POC discussed and patient verbalizes understanding. Bed is in low locked position with side rails up x2. Will continue to monitor PRN.
--- NOTE | 2019-06-25 19:30 | NUR ---
Barrier cream applied to blanchable redness on sacrum. Patient repositioned onto right side. Tolerated well.
--- NOTE | 2019-06-25 20:46 | NUR ---
IV removal IV DC'd with clean sterile technique, catheter fully intact. Pressure dressing applied to site. Patient tolerated well. Tele box removed and sent to IAN via tube system for transport to [facility].
--- NOTE | 2019-06-25 20:51 | NUR ---
Yudith at bedside to transfer patient to [facility]. Patient is stable with no s/s of distress at time of departure. Patient departed via gurney at this time.
[2019-06-25] MEDS ORDERED: DICYCLOMINE HCL 10 MG CAP PO SCH (22:00)
== END 2019-06-25 20:51 | DRG 682 ==
LOC: ER 10:33 → TELE 10:34 → TELE-CENTR 20:36
PROVIDERS: ADMIT Internal Medicine; ATTEND Internal Medicine
DX: N17.9 Acute kidney failure, unspecified (principal); I50.33 Acute on chronic diastolic (congestive) heart failure; I13.0 Hypertensive heart and chronic kidney disease with heart failure and stage 1 through stage 4 chronic kidney disease, or unspecified chronic kidney disease; L03.116 Cellulitis of left lower limb; K52.9 Noninfective gastroenteritis and colitis, unspecified; I16.0 Hypertensive urgency; E11.22 Type 2 diabetes mellitus with diabetic chronic kidney disease; N18.9 Chronic kidney disease, unspecified; J44.9 Chronic obstructive pulmonary disease, unspecified; D63.1 Anemia in chronic kidney disease; E83.42 Hypomagnesemia; E78.5 Hyperlipidemia, unspecified; Z89.422 Acquired absence of other left toe(s); Z90.49 Acquired absence of other specified parts of digestive tract; Z82.49 Family history of ischemic heart disease and other diseases of the circulatory system; Z79.84 Long term (current) use of oral hypoglycemic drugs
CPT/HCPCS: 36415; 51702; 71045; 80048; 80053; 81001; 82270; 82550; 82962; 83735; 83880; 84484; 85025; 87040; 87045; 87081; 87086; 87493; 87899; 93005; 93970; 96365; 96366; 96375; G0378; J1815; J1956; J2543; J3490

== ENCOUNTER → 2019-11-18 | Outpatient (CLI) | payer MEDICARE, OTHER ==
[~2019-11-18] MED LIST changes: +FENO145T27 PO; -FENO1TAB42 PO; -METO25TA62 PO; +METO25TA93 PO
[2019-11-18 12:49] LABS: Basophils # (auto) 0.1 uL; Eosinophils # (auto) 0.3 uL; Eosinophils % (auto) 3.6 % (0.0-7.0); Hematocrit 29.4 % (36.0-46.0); Hemoglobin 10.3 g/dL (12.2-16.2); Lymphocytes % (auto) 14.4 % (10.0-50.0); Mean Corpuscular Hemoglobin 31.8 pg (28.0-32.0); Mean Corpuscular Hgb Conc. 35.2 g/dL (32.0-36.0); Mean Corpuscular Volume 90.3 fL (80.0-100.0); Monocytes # (auto) 0.6 uL; Monocytes % (auto) 8.9 % (0.0-12.0); Neutrophils # (auto) 5.2 uL; Neutrophils % (auto) 72.1 % (37.0-80.0); Nucleated Red Blood Cells % 0.1 %; Platelet Count (auto) 434 10^3/uL (140-450); Red Blood Cells 3.26 10^6/uL (4.0-5.20); Red Cell Distribution Width 13.9 % (11.8-14.3); White Blood Cell 7.3 10^3/uL (4.4-10.8)
[2019-11-18 13:30] LABS: Potassium 3.9 mmol/L (3.5-5.1)
[2019-11-18 14:08] LABS: Albumin 3.1 g/dL (3.4-5.0); BUN/Creatinine Ratio 26.2; Bilirubin, Total 0.2 mg/dL (0.2-1.0); Calcium 8.8 mg/dL (8.5-10.1)
== END | disposition home or self-care (01) ==
LOC: Rad HDHVI 08:45
PROVIDERS: ATTEND Internal Medicine
DX: E03.9 Hypothyroidism, unspecified (principal); K90.9 Intestinal malabsorption, unspecified; D51.9 Vitamin B12 deficiency anemia, unspecified; N18.3 Chronic kidney disease, stage 3 (moderate); I73.9 Peripheral vascular disease, unspecified; Z79.899 Other long term (current) drug therapy
CPT/HCPCS: 36415; 80053; 80061; 82306; 82607; 83036; 84439; 84443; 85025

== ENCOUNTER → 2019-11-18 | Outpatient (CLI) | payer MEDICARE, OTHER ==
[2019-11-18 09:24] LABS: Basophils # (auto) 0.1 uL; Basophils % (auto) 1.1 % (0.0-2.0); Eosinophils # (auto) 0.3 uL; Eosinophils % (auto) 3.5 % (0.0-7.0); Hematocrit 29.6 % (36.0-46.0); Hemoglobin 10.3 g/dL (12.2-16.2); Lymphocytes # (auto) 1.2 uL; Lymphocytes % (auto) 15.9 % (10.0-50.0); Mean Corpuscular Hemoglobin 31.2 pg (28.0-32.0); Mean Corpuscular Hgb Conc. 34.9 g/dL (32.0-36.0); Mean Corpuscular Volume 89.4 fL (80.0-100.0); Monocytes # (auto) 0.6 uL; Monocytes % (auto) 8.8 % (0.0-12.0); Neutrophils # (auto) 5.2 uL; Neutrophils % (auto) 70.7 % (37.0-80.0); Nucleated Red Blood Cells % 0.1 %; Platelet Count (auto) 441 10^3/uL (140-450); Red Blood Cells 3.32 10^6/uL (4.0-5.20); Red Cell Distribution Width 13.3 % (11.8-14.3); White Blood Cell 7.3 10^3/uL (4.4-10.8)
[2019-11-18 10:04] LABS: Albumin 2.9 g/dL (3.4-5.0); CRP High Sensitivity 0.29 mg/dL (< 0.3); Calcium 8.6 mg/dL (8.5-10.1); Potassium 3.7 mmol/L (3.5-5.1)
[2019-11-18 10:07] LABS: BUN/Creatinine Ratio 26.4; Bilirubin, Total 0.2 mg/dL (0.2-1.0); Total Protein 6.9 g/dL (6.4-8.2)
== END | disposition home or self-care (01) ==
LOC: LAB 08:08
PROVIDERS: ATTEND Internal Medicine
DX: I12.9 Hypertensive chronic kidney disease with stage 1 through stage 4 chronic kidney disease, or unspecified chronic kidney disease (principal); E11.22 Type 2 diabetes mellitus with diabetic chronic kidney disease; N18.9 Chronic kidney disease, unspecified; E03.9 Hypothyroidism, unspecified
CPT/HCPCS: 36415; 80053; 83036; 84443; 85025; 85652; 86141

== ENCOUNTER → 2019-11-20 | Outpatient (CLI) | payer MEDICARE, OTHER ==
[2019-11-20 12:06] LABS: Urine Blood TRACE /uL (Negative); Urine Specific Gravity 1.009 (1.001-1.035)
== END | disposition home or self-care (01) ==
LOC: LAB 10:52
PROVIDERS: ATTEND Internal Medicine
DX: N39.0 Urinary tract infection, site not specified (principal)
CPT/HCPCS: 81003; 87086

== ENCOUNTER → 2020-01-28 | Outpatient (CLI) | payer MEDICARE, OTHER ==
[2020-01-30 11:39] LABS: Hepatitis B Core Total AB Negative; Hepatitis B Surface Antigen Negative (Negative)
== END | disposition home or self-care (01) ==
LOC: LAB 15:29
PROVIDERS: ATTEND Internal Medicine Rheumatology
DX: M05.79 Rheumatoid arthritis with rheumatoid factor of multiple sites without organ or systems involvement (principal); R94.5 Abnormal results of liver function studies; E78.01 Familial hypercholesterolemia; Z11.1 Encounter for screening for respiratory tuberculosis; Z11.59 Encounter for screening for other viral diseases
CPT/HCPCS: 36415; 85652; 86141; 86200; 86431; 86704; 87340

== ENCOUNTER → 2020-03-03 | Outpatient (CLI) | payer MEDICARE, OTHER | END | disposition home or self-care (01) | LOC: Rad HDHVI 08:08 | PROVIDERS: ATTEND Internal Medicine | DX: I05.9 Rheumatic mitral valve disease, unspecified (principal); J44.9 Chronic obstructive pulmonary disease, unspecified; I10 Essential (primary) hypertension | CPT/HCPCS: 93306 ==

== ENCOUNTER → 2020-04-15 | Outpatient (CLI) | payer MEDICARE, OTHER ==
[2020-04-15 12:12] LABS: Basophils # (auto) 0.1 10 ^3/uL (0-0.2); Monocytes # (auto) 0.7 10 ^3/uL (0-1.3)
[2020-04-15 12:15] LABS: Basophils % (auto) 1.1 % (0.0-2.0); Eosinophils # (auto) 0.6 10 ^3/uL (0-0.8); Eosinophils % (auto) 7.8 % (0.0-7.0); Hematocrit 22.7 % (36.0-46.0); Hemoglobin 7.8 g/dL (12.2-16.2); Lymphocytes # (auto) 1.6 10 ^3/uL (0.4-5.4); Lymphocytes % (auto) 19.8 % (10.0-50.0); Mean Corpuscular Hgb Conc. 34.1 g/dL (32.0-36.0); Mean Corpuscular Volume 93.8 fL (80.0-100.0); Neutrophils # (auto) 5.2 10 ^3/uL (1.6-8.6); Neutrophils % (auto) 63.3 % (37.0-80.0); Platelet Count (auto) 438 10^3/uL (140-450); Red Blood Cells 2.42 10^6/uL (4.0-5.20); Red Cell Distribution Width 14.5 % (11.8-14.3); White Blood Cell 8.3 10^3/uL (4.4-10.8)
[2020-04-15 12:25] LABS: Free T4 (Free Thyroxine) 1.01 ng/dL (0.89-1.76)
[2020-04-15 12:26] LABS: Potassium 4.1 mmol/L (3.5-5.1)
[2020-04-15 12:49] LABS: Albumin 2.8 g/dL (3.4-5.0); BUN/Creatinine Ratio 32.8; Bilirubin, Total 0.3 mg/dL (0.2-1.0); Calcium 7.1 mg/dL (8.5-10.1); Total Protein 6.7 g/dL (6.4-8.2)
--- NOTE | 2020-04-15 17:29 | NUR ---
DR JO NOTIFIED OF CRITICAL BUN, TOLD TO HAVE PATIENT STOP METFORMIN AND ASK DR NEGRON IF HE CAN SEE THE PATIENT THIS WEEK.
--- NOTE | 2020-04-15 17:38 | NUR ---
SPOKE WITH DR NEGRON REGARDING DR JO REQUEST IF HE CAN SEE THE PATIENT THIS WEEK DR JO WILL BE OUT OF THE OFFICE UNTIL NEXT WEEK. DR NEGRON AGREED TO SEE PATIENT ON MONDAY, YENNIFER ADDED PATIENT TO DR NEGRON SCHEDULE 04/17/20 @ 1040.
--- NOTE | 2020-04-15 18:00 | NUR ---
PATIENT NOTIFIED TO STOP TAKING METFORMIN AND DRINK PLENTY OF FLUIDS, PT STATES THAT SHE NO LONGER TAKES METFORMIN. PATIENT AND SON SERJIO NOTIFIED OF MD APPT WITH DR NEGRON ON Monday04/17/20 @ 1040 AND TO BRING ALL HOME MEDICATIONS TO APPT.
== END | disposition home or self-care (01) ==
LOC: LAB 08:26
PROVIDERS: ATTEND Internal Medicine
DX: E03.9 Hypothyroidism, unspecified (principal); K90.9 Intestinal malabsorption, unspecified; D51.9 Vitamin B12 deficiency anemia, unspecified; Z79.899 Other long term (current) drug therapy; Z00.00 Encounter for general adult medical examination without abnormal findings
CPT/HCPCS: 36415; 80053; 80061; 82306; 82607; 83036; 84439; 84443; 85025

== ENCOUNTER → 2020-04-20 | Outpatient (CLI) | payer MEDICARE, OTHER ==
[2020-04-20 16:06] LABS: Urine Blood 1+ /uL (Negative); Urine Specific Gravity 1.011 (1.001-1.035)
== END | disposition home or self-care (01) ==
LOC: LAB 11:26
PROVIDERS: ATTEND Internal Medicine Cardiovascular Disease
DX: N39.0 Urinary tract infection, site not specified (principal)
CPT/HCPCS: 81003; 87086; 87088; 87186

== ENCOUNTER → 2020-04-22 | Outpatient (CLI) | payer MEDICARE, OTHER ==
[~2020-04-22] MED LIST changes: -LISI40TA PO; +LISI40TA11 PO
== END | disposition home or self-care (01) ==
LOC: Rad HDHVI 08:05
PROVIDERS: ATTEND Internal Medicine Cardiovascular Disease
DX: I42.9 Cardiomyopathy, unspecified (principal); E11.9 Type 2 diabetes mellitus without complications; J44.9 Chronic obstructive pulmonary disease, unspecified
CPT/HCPCS: 93306

== ENCOUNTER → 2020-05-11 | Outpatient (CLI) | payer MEDICARE, OTHER ==
[~2020-05-11] VITALS: Ht 162.6 cm; Wt 53.5 kg
[~2020-05-11] MED LIST changes: +ADENOSINE 45 MG in GIVE UN-DILUTED 0 ML IV ONE; +ADENOSINE 90 MG/30 ML INJ IV ONE; +LISI40TA PO; -LISI40TA11 PO
== END | disposition home or self-care (01) ==
LOC: Rad HDHVI 08:22
PROVIDERS: ATTEND Internal Medicine Cardiovascular Disease
DX: I10 Essential (primary) hypertension (principal); E11.9 Type 2 diabetes mellitus without complications; E78.00 Pure hypercholesterolemia, unspecified; F17.210 Nicotine dependence, cigarettes, uncomplicated; Z82.49 Family history of ischemic heart disease and other diseases of the circulatory system
CPT/HCPCS: 78452; 93005; 96374; 96375; A9500; J0153

== ENCOUNTER → 2020-05-22 | Outpatient (CLI) | payer MEDICARE, OTHER ==
[~2020-05-22] MED LIST changes: -ADENOSINE 45 MG in GIVE UN-DILUTED 0 ML IV ONE; -ADENOSINE 90 MG/30 ML INJ IV ONE; +FUROSEMIDE 100 MG/10ML VIAL IV ONE; +FUROSEMIDE 20 MG/2 ML VIAL ONE; +FUROSEMIDE INJECTION 10 ML ONE; +POTASSIUM CHL 10 Meq TABLET PO ONE
[2020-05-22 10:00] VITALS: BP 164/70
--- NOTE | 2020-05-22 10:00 | NUR ---
Patient sent from MD side with orders from Dr Perez as entered. Patient AAOx4, wheelchair assisted by son, breathing even and unlabored, bilat lower extremity 3+ pitting edema.
[2020-05-22 10:30] VITALS: BP 182/70
--- NOTE | 2020-05-22 10:30 | NUR ---
CHF Clinic Discharge Instructions See e-MAR for any mediations given with this visit. Patient education given on disease process. Patient verbalized understanding. Previous labs reviewed. Patient discharged in stable condition with after care instructions and follow up appointment. Note Lasix IVP admin by Carla CANSECO. Potassium PO admin by Carla CANSECO. Patient educated to take missed morning home BP medications as soon as she gets home, patient and son verbalized understanding.
[2020-05-22 12:09] LABS: BUN/Creatinine Ratio 31.2; Calcium 7.3 mg/dL (8.5-10.1); Potassium 4.4 mmol/L (3.5-5.1)
== END | disposition home or self-care (01) ==
LOC: CHF HDHVI 10:10
PROVIDERS: ATTEND Internal Medicine Cardiovascular Disease
DX: R60.0 Localized edema (principal); I42.8 Other cardiomyopathies; J44.9 Chronic obstructive pulmonary disease, unspecified; I10 Essential (primary) hypertension; E11.9 Type 2 diabetes mellitus without complications; E03.9 Hypothyroidism, unspecified; Z79.899 Other long term (current) drug therapy; Z87.891 Personal history of nicotine dependence
CPT/HCPCS: 36415; 80048; 96374; G0463; J1940

== ENCOUNTER → 2020-06-16 | Outpatient (CLI) | payer MEDICARE, OTHER ==
[~2020-06-16] MED LIST changes: -FUROSEMIDE 100 MG/10ML VIAL IV ONE; -FUROSEMIDE 20 MG/2 ML VIAL ONE; -FUROSEMIDE INJECTION 10 ML ONE; -LISI40TA PO; +LISI40TA11 PO; -POTASSIUM CHL 10 Meq TABLET PO ONE
[2020-06-16 10:39] LABS: Basophils # (auto) 0.1 10 ^3/uL (0-0.2); Basophils % (auto) 1.2 % (0.0-2.0); Eosinophils # (auto) 0.6 10 ^3/uL (0-0.8); Monocytes # (auto) 0.6 10 ^3/uL (0-1.3); Monocytes % (auto) 7.7 % (0.0-12.0); Neutrophils # (auto) 4.7 10 ^3/uL (1.6-8.6)
[2020-06-16 10:41] LABS: Eosinophils % (auto) 8.8 % (0.0-7.0); Hematocrit 24.3 % (36.0-46.0); Hemoglobin 8.4 g/dL (12.2-16.2); Lymphocytes # (auto) 1.2 10 ^3/uL (0.4-5.4); Lymphocytes % (auto) 17.4 % (10.0-50.0); Mean Corpuscular Hemoglobin 32.5 pg (28.0-32.0); Mean Corpuscular Hgb Conc. 34.4 g/dL (32.0-36.0); Mean Corpuscular Volume 94.3 fL (80.0-100.0); Neutrophils % (auto) 64.9 % (37.0-80.0); Platelet Count (auto) 399 10^3/uL (140-450); Red Blood Cells 2.58 10^6/uL (4.0-5.20); Red Cell Distribution Width 13.4 % (11.8-14.3); White Blood Cell 7.2 10^3/uL (4.4-10.8)
[2020-06-16 11:00] LABS: Potassium 4.1 mmol/L (3.5-5.1)
[2020-06-16 11:09] LABS: Albumin 2.7 g/dL (3.4-5.0); BUN/Creatinine Ratio 24.2; Bilirubin, Total 0.2 mg/dL (0.2-1.0); CRP High Sensitivity 0.06 mg/dL (< 0.3); Calcium 7.9 mg/dL (8.5-10.1); Total Protein 6.4 g/dL (6.4-8.2)
== END | disposition home or self-care (01) ==
LOC: LAB 09:17
PROVIDERS: ATTEND Internal Medicine Rheumatology
DX: L40.50 Arthropathic psoriasis, unspecified (principal)
CPT/HCPCS: 36415; 80053; 85025; 85652; 86141

== ENCOUNTER → 2020-06-23 | Outpatient (CLI) | payer MEDICARE, OTHER ==
[~2020-06-23] MED LIST changes: +FUROSEMIDE 100 MG/10ML VIAL IV ONE; +FUROSEMIDE 40 MG/4 ML VIAL ONE; +MAGNESIUM OXIDE 400 MG TAB ONE; +MAGNESIUM OXIDE 400 MG TAB PO ONE; +POTASSIUM EFFERVESENT TAB 25 MEQ ONE; +POTASSIUM EFFERVESENT TAB 25 MEQ PO ONE
[2020-06-23 10:23] VITALS: BP 187/61
--- NOTE | 2020-06-23 10:23 | NUR ---
CLINIC PT ARRIVED TO THE CHF CLINIC FOR BACK OFFICE WITH MD ORDERS FOR DIURETIC THERAPY. A/OX4, WHEELCHAIR, ASSISTED BY FAMILY. BREATHING IS EVEN AND UNLABORED. PT DID NOT TAKE HOME B/P MEDS IN AM BECAUSE SHE DID NOT EAT.
--- NOTE | 2020-06-23 10:37 | NUR ---
LABS DRAWN AND SENT
[2020-06-23 10:42] VITALS: BP 189/68
--- NOTE | 2020-06-23 10:42 | NUR ---
Discharge Instructions See e-MAR for any mediations given with this visit. Patient education given on disease process. Patient verbalized understanding. Previous labs reviewed. Patient discharged in stable condition with after care instructions and follow up appointment. NOTE LASIX IVP ADMIN BY JIM WHITFIELD EFF PO ADMIN BY JIM CANSECO MAG OX PO ADMIN BY JIM CANSECO
== END | disposition home or self-care (01) ==
LOC: CHF HDHVI 10:18
PROVIDERS: ATTEND Internal Medicine
DX: R60.9 Edema, unspecified (principal); E87.6 Hypokalemia; E83.42 Hypomagnesemia; I10 Essential (primary) hypertension; J44.9 Chronic obstructive pulmonary disease, unspecified; E03.9 Hypothyroidism, unspecified; E11.9 Type 2 diabetes mellitus without complications; E78.00 Pure hypercholesterolemia, unspecified; Z79.899 Other long term (current) drug therapy; Z87.891 Personal history of nicotine dependence
CPT/HCPCS: 96374; G0463; J1940

== ENCOUNTER → 2020-07-07 | Outpatient (CLI) | payer MEDICARE, OTHER ==
[~2020-07-07] MED LIST changes: -FUROSEMIDE 100 MG/10ML VIAL IV ONE; -FUROSEMIDE 40 MG/4 ML VIAL ONE; -MAGNESIUM OXIDE 400 MG TAB ONE; -MAGNESIUM OXIDE 400 MG TAB PO ONE; -POTASSIUM EFFERVESENT TAB 25 MEQ ONE; -POTASSIUM EFFERVESENT TAB 25 MEQ PO ONE
[2020-07-07 12:18] LABS: Potassium 3.1 mmol/L (3.5-5.1)
[2020-07-07 12:25] LABS: Albumin 2.8 g/dL (3.4-5.0); BUN/Creatinine Ratio 19.6; Bilirubin, Total 0.2 mg/dL (0.2-1.0); Calcium 7.4 mg/dL (8.5-10.1); Total Protein 6.9 g/dL (6.4-8.2)
== END | disposition home or self-care (01) ==
LOC: LAB 08:48
PROVIDERS: ATTEND Internal Medicine Cardiovascular Disease
DX: I10 Essential (primary) hypertension (principal)
CPT/HCPCS: 36415; 80053

== ENCOUNTER → 2020-12-15 | Outpatient (CLI) | payer MEDICARE, OTHER ==
[~2020-12-15] MED LIST changes: -HYOS0.1269 PO; +HYOS0.1293 PO
== END | disposition home or self-care (01) ==
LOC: Rad HDHVI 10:06
PROVIDERS: ATTEND Internal Medicine Cardiovascular Disease
DX: R42 Dizziness and giddiness (principal); D64.9 Anemia, unspecified
CPT/HCPCS: 93880